=== PATIENT | female | born 1950 | race Caucasian/White ===

== ENCOUNTER 2020-01-14 04:59 | Inpatient (IN) ==
[2020-01-14] MEDS ORDERED: NITROGLYCERIN 0.4 MG TAB.SUBL SL ONE (05:10)
[2020-01-14] MEDS ORDERED: NITROGLYCERIN 1 GM OINT.TOP TD ONE (05:12)
[2020-01-14] MEDS ORDERED: NITROGLYCERIN/D5W 25 MG/250 ML BOTTLE IV SCH (05:30)
--- NOTE | 2020-01-14 05:45 | Emergency Department Note ---
SOB HPI - General Chief Complaint: Shortness of Breath/Dyspnea Stated Complaint: shortness of breath Time Seen by Provider: 01/14/20 05:25 Source: EMS Mode of arrival: EMS Limitations: no limitations - History of Present Illness Patient is brought in by ambulance with history of hypertension and severely short of breath. The. She's not able to speak in sentences or words, she is oriented to name and place. She is aware of her circumstances bed gasping for air. She is due for dialysis today. MD Complaint: shortness of breath - Related Data Home Medications Medication Instructions Recorded Confirmed krill oil 500 mg capsule 500 mg PO BID cap 04/30/18 01/13/20 vit C 250 mg-E 200 unit-zinc 40 1 tab PO BID 04/30/18 01/13/20 mg-copper 1 [id number] capsule Previous Rx's Medication Instructions Recorded aspirin 81 mg tablet,delayed 81 mg PO QDAY #30 tab 11/28/16 release cholecalciferol (vitamin D3) 25 1,000 unit PO .qod #30 cap 12/18/17 mcg (1,000 unit) capsule lidocaine 5 % topical patch 1 patch TOPICAL QDAY PRN #30 each 05/24/19 furosemide 20 mg tablet 20 mg PO BID #180 tab 05/27/19 sodium bicarbonate 650 mg tablet See Rx Instructions .ROUTE 06/30/19 .COMPLEX #120 tablet calcitriol 0.25 mcg capsule See Rx Instructions .ROUTE 09/09/19 .COMPLEX #20 capsule albuterol sulfate 90 mcg/actuation 2 inh INHALATION Q6H PRN #1 each 09/22/19 breath activated powder inhaler darbepoetin kevin in polysorbat 40 60 mcg IV .q month #1 ml 10/19/ mcg/mL in polysorbate injection sevelamer carbonate 800 mg tablet 1,600 mg PO .tidcc #180 tab 11/18/19 fluticasone propionate 50 2 spray INTRANASAL QDAY PRN #16 g 11/24/19 mcg/actuation nasal spray,suspension carvedilol 6.25 mg tablet 6.25 mg PO BID #180 tab 12/06/19 lidocaine-prilocaine 2.5 %-2.5 % 1 g TOPICAL ONCE #30 g 12/20/19 topical cream sertraline 100 mg tablet 50 mg PO BID 30 Days #30 tab 12/31/19 atorvastatin 10 mg tablet 10 mg PO QDAY #90 tab 01/03/20 cefazolin in sterile water 2 2 g IV .COMPLEX #20 ml 01/04/20 gram/20 mL in sterile water intravenous syringe Allergies Allergy/AdvReac Type Severity Reaction Status Date / Time latex AdvReac Mild Rash Verified 01/13/20 15:42 prednisone AdvReac Mild Anxiety Verified 01/13/20 15:42 Review of Systems Review of Systems: History valvular heart disease, history of lung cancer, COPD Limitations: ROS unobtainable due to patients medical condition Past Medical History - Past Medical History ON LICENSE OF [facility] Narrative: [facility] Medical History CKD stage G5/A3, GFR <15 and albumin creatinine ratio >300 mg/g (Chronic) Nephrotic range proteinuria with negative w/u in the past (ANCA, MIREILLE, Hep serologies, SPEP/UPEP) Hyperkalemia and CKD 5 limited use of RAASI therapy. Anemia due to stage 5 chronic kidney disease treated with darbepoetin (Chronic) ROBERT therapy initiated September 20, 2019, increased 10/18/19 to 60 ug/mo Nephrotic range proteinuria (Chronic) GFR is too low to use any RAASI therapy LVEF would probably not tolerate verapamil or diltiazem It is hard to argue with 3 years off dialysis and she is asymptomatic's just monitor Congestive heart failure due to valvular disease (Chronic) Heavily calcified mitral valve with stenotic physiology 2-3+ aortic insufficiency without stenosis, LVEF preserved on current medication proBNP level running 9,000-11,000 range Mitral valve stenosis and aortic valve insufficiency (Chronic) She denies rheumatic heart disease Will refer to cardiology Currently not on any anticoagulant and because of mitral valve disease if one was needed it probably have to be warfarin Pleural effusion (Chronic) Right small pleural effusion, remains unchanged, with benign behavior Adenocarcinoma of right lung (Chronic) Stage IB well differentiated adenocarcinoma of the right lung in complete remission after surgical resection Hyperparathyroidism due to renal insufficiency (Chronic) Renvella, calcitriol. Vit D3. Monitor calcium, phosphorus, and PTH levels Low back pain (Acute) Hypercalcemia (Chronic) persistent hypercalcemia despite removal of the tumor is a concern PTH is not elevated will obtain work up advised to stay well hydrated also has elevated phos, non compliant withbinders, advised to take them religiously given elevated Ca.phos product will follow Chronic kidney disease, stage V (Chronic) Has defied the odds having gone 3 years since the expected date of her original presentation with advanced renal failure still not on dialysis. Stable course which makes me believe this is chronic TIN or hypertensive nephrosclerosis more than diabetic renal disease History of tobacco use (Acute) Pneumothorax (Acute 01/02/15) Hydropneumothorax Menopausal and postmenopausal disorder (Acute) Hypertension, essential, benign (Chronic) This is occurring in the setting of mitral stenosis and aortic insufficiency Hyperlipidemia (Acute) Gastroesophageal reflux (Acute) Chronic obstructive pulmonary disease (Acute) Hypertensive renal disease (Chronic) BP at goal ct current medications will hold off on ACEI/ARB given worsening s.Creat and mild hyperkalemia keep a BP log will follow and optimize meds Microscopic hematuria (Chronic) recheck UA Proteinuria (Chronic) Hyponatremia (Chronic) Na stable at 135 will monitor Anemia (Chronic) Secondary hyperparathyroidism of renal origin (Chronic) PTH 77, cCa 10.6 much improved, hyperphosphatemia worse again Her PTHrp is elevated at 31, normal range is upto 27 educated about low phos diet ct renvela, need to have better compliance stay well hydrated Metabolic acidosis (Chronic) Chronic kidney disease, stage IV (severe) (Chronic) Diabetes mellitus, type II (Ruled-out) Diabetes mellitus (Inactive) Surgical History History of tympanoplasty (Acute) L perforation History of lobectomy of lung (Acute 12/23/14) Dr Montes De Oca-right*Mediastinoscopy followed by RUL History of hysterectomy (Acute) VISH/BSO History of colonoscopy (Acute 01/26/15) Dr Brahser- TA/HP Source: old records reviewed Medical history: Reports: cancer, CHF, COPD, renal disease, valvular heart disease Surgical history ED: Reports: cancer surgery Family history: Reports: connective tissue disorde, hypertension - Social History smoking status: Former smoker Alcohol use: Reports: Rarely Drug use: Reports: none Physical Exam Limitations: no limitations General appearance: alert, in distress, nontoxic Head: atraumatic, normocephalic Eye: Present: normal appearance, PERRL, EOMI, visual temple intact. Absent: scl eral icterus, conjunctival injection ENT: Present: normal exam, normal oropharynx, mucous membranes moist, normal external ear exam Neck: Present: normal inspection, full ROM, trachea midline. Absent: tenderness Chest: Present: normal inspection, symmetric chest wall rise. Absent: tenderness, rash Respiratory: Present: respiratory distress, accessory muscle use, decreased breath sounds. Absent: rales/crackles, wheezes Cardiovascular: Present: regular rate, normal rhythm, systolic murmur. Absent: rubs Abdominal: Present: soft. Absent: distention, tenderness Extremities: Present: normal inspection, normal capillary refill. Absent: pedal edema, cyanosis, clubbing Back: Absent: CVA tenderness (R), CVA tenderness (L) Neurological: Present: alert. Absent: motor sensory deficit Psychiatric: Present: normal affect Skin: Present: warm, diaphoretic, cyanosis, pallor, mottled Course - Reevaluation(s) Reevaluation #1: Patient immediately started on sublingual nitroglycerin, she was given 1 tablet sublingual at the same time, we applied 1 inch of Nitropaste. We kept her on a nonrebreather mask and despite oxygen therapy. Her pH was 7.17 with a PCO2 of 90. Thus, she was retaining CO2 and we called respiratory distress started BiPAP. We also started her on a Tridil drip and she was titrated up from 5 mics to 10 mics and with that her blood pressure is coming down and the last reading was 150 [address] with [address] Allred, the fiberglass model maker on-call, given that her chest x-ray showing flash pulmonary edema with a small effusion on the right side, given that she has both mitral stenosis and aortic's insufficiency, this makes the most sense of. I believe she developed flash pulmonary edema from uncontrolled hypertension. Treatment for her volume overload and pulmonary edema would be urgent dialysis, which will be initiated by the nephrology staff. Also spoke with Dr. Nieto for ICU admission. Labs are still pending at this t agnes with exception of a blood gas, given that she has CO2 retention. We also started her on Solu-Medrol as well as DuoNeb treatment. She is currently on BiPAP and this should also help with the volume overload. Lasix therapy initiated, Kelsey catheter placed in the emergency department. Reevaluation #2: Patient recheck at 6:25 AM, she's breathing much easier, on auscultation most of the wheezing is gone. Blood pressure is 120 systolic over 80s. We will titrate down the Tridil drip. Plan on transfer to the ICU. Vital Signs Temperature 97.1 F 01/14/20 05:00 Pulse Rate 104 H 01/14/20 05:00 Respiratory Rate 20 01/14/20 05:00 Blood Pressure 246/94 01/14/20 05:00 Pulse Oximetry (%) 99 01/14/20 05:00 Temperature 97.1 F 01/14/20 05:00 Pulse Rate 106 H 01/14/20 06:01 Respiratory Rate 24 H 01/14/20 06:01 Blood Pressure 146/98 01/14/20 06:01 Pulse Oximetry (%) 100 01/14/20 06:01 Shortness of Breath/Dyspnea - [facility] Narrative Medical decision making narrative: Final impression is flash pulmonary edema from uncontrolled hypertension - Lab Data Result diagrams: 01/14/20 05:40 01/14/20 05:40 Lab Results 01/14/20 01/14/20 Range/Units 05:40 05:40 WBC 24.2 H (4.50-11.00) K/mcL RBC 2.87 L (3.59-5.38) M/mcL Hgb 8.4 L (11.2-15.7) g/dL Hct 28.1 L (34.1-44.9) % MCV 97.9 (80.0-100.0) fL MCH 29.3 (26.0-34.0) pg MCHC 29.9 L (31.0-36.0) g/dL RDW 21.2 H (11.5-14.5) % Plt Count 498 H (140-440) K/mcL MPV 9.9 (7.4-10.4) fL Gran % 72.3 (38.0-78.0) % Lymph % (Auto) 20.1 (15.5-49.0) % Amador % (Auto) 5.9 (1.0-12.0) % Eos % (Auto) 1.2 (0.0-7.0) % Baso % (Auto) 0.5 (0.0-2.0) % Gran # 17.49 H (1.80-8.00) K/mcL Lymph # (Auto) 4.85 H (1.50-4.80) K/mcL Amador # (Auto) 1.43 H (0.10-0.90) K/mcL Eos # (Auto) 0.30 (0.00-0.70) K/mcL Baso # (Auto) 0.11 (0.00-0.30) K/mcL VBG Lactic Acid 1.6 (0.5-2.0) mmol/L Critical Care Time Critical Care Time: Yes Total Critical Care Time: 25 Attestation: I attest to the fact that the patient receive one-on-one care with nursing staff as well as myself for at least 25 minutes. Disposition Pt seen by TIER LIFT TRUCK OPERATOR/PA only: No Clinical Impression: Renal hypertension, Pulmonary edema, Acute exacerbation of chronic obstructive airways disease, Congestive heart failure due to valvular disease, Mitral valve stenosis and aortic valve insufficiency, Pleural effusion, Hypertensive renal disease CHF (congestive heart failure) Qualifiers: Heart failure type: unspecified Heart failure chronicity: chronic Qualified Code(s): I50.9 - Heart failure, unspecified Disposition: Xfer As Inpt ([facility]) Condition: Critical Referrals: Leonardo Woodard MD [Primary Care Provider] -
[2020-01-14] MEDS ORDERED: IPRATROPIUM/ALBUTEROL 3 ML AMPUL.NEB NEB ONE (05:53)
[2020-01-14] MEDS ORDERED: methylPREDNISolone SOD SUCC 125 MG/2 ML VIAL IV ONE (05:53)
[2020-01-14] MEDS ORDERED: IPRATROPIUM/ALBUTEROL 3 ML AMPUL.NEB NEB PRN ×2 (05:55→08:01)
[2020-01-14] MEDS ORDERED: FUROSEMIDE 40 MG/4 ML VIAL IV ONE (06:03)
--- NOTE | 2020-01-14 06:18 | Internal Med History&Physical ---
Medical - H&P: HPI Patient information: Note initiated : 01/14/20 at 6:18 am Service Date, if different from initiated Date: [] Patient: Miracle Velez a 69 y/o F admitted on for shortness of breath. Chief Complaint: [] Chief complaint: Shortness of breath History of present illness: Ms. Velez is a 69 year old F WITH A HISTORY OF MS, AI, ESRD on HD/RUL lung resection, advanced COPD who presents to the ER with rapidly progressive dyspnea over the last 24 hours. Symptoms are present with minimal exertion and even at rest. Denies relief relief using her bronchodilators. Denies associated productive sputum/fever shaking chills or rash or changes in medications. Initial work-up was consistent with hypercapnic respiratory failure with blood pressure 250's, imaging consistent with flash pulmonary edema, blood gas CO2 90 and pH 7.17. White count 25,000. Patient was promptly started on noninvasive mechanical ventilation along with diuretics. Nephrology was consulted for andrea rgent hemodialysis. Elevated troponin consistent with endorgan dysfunction. Hospital service was consulted after nephrology consultation was sought for emergent hemodialysis At the time of evaluation patient is currently on mechanical ablation. She is unable to talk in full sentences. She appears distressed. She was able to endorse history as above and denies sick contacts. Her symptoms are progressed today and a half from dyspnea on maximal exertion to dyspnea at rest. She denies associated fever, productive sputum, smoking. She quit smoking 2 years ago. Review of systems A 10 point review system was performed and is negative except for ones cussed above Medical - H&P: PMH Medical history: CKD stage G5/A3, GFR <15 and albumin creatinine ratio >300 mg/g (Chronic) Nephrotic range proteinuria with negative w/u in the past (ANCA, MIREILLE, Hep serologies, SPEP/UPEP) Hyperkalemia and CKD 5 limited use of RAASI therapy. Anemia due to stage 5 chronic kidney disease treated with darbepoetin (Chronic) ROBERT therapy initiated September 20, 2019, increased 10/18/19 to 60 ug/mo Nephrotic range proteinuria (Chronic) GFR is too low to use any RAASI therapy LVEF would probably not tolerate verapamil or diltiazem It is hard to argue with 3 years off dialysis and she is asymptomatic's just monitor Congestive heart failure due to valvular disease (Chronic) Heavily calcified mitral valve with stenotic physiology 2-3+ aortic insufficiency without stenosis, LVEF preserved on current medication proBNP level running 9,000-11,000 range Mitral valve stenosis and aortic valve insufficiency (Chronic) She denies rheumatic heart disease Will refer to cardiology Currently not on any anticoagulant and because of mitral valve disease if one was needed it probably have to be warfarin Pleural effusion (Chronic) Right small pleural effusion, remains unchanged, with benign behavior Adenocarcinoma of right lung (Chronic) Stage IB well differentiated adenocarcinoma of the right lung in complete remission after surgical resection Hyperparathyroidism due to renal insufficiency (Chronic) Renvella, calcitriol. Vit D3. Monitor calcium, phosphorus, and PTH levels Low back pain (Acute) Hypercalcemia (Chronic) persistent hypercalcemia despite removal of the tumor is a concern PTH is not elevated will obtain work up advised to stay well hydrated also has elevated phos, non compliant withbinders, advised to take them religiously given elevated Ca.phos product will follow Chronic kidney disease, stage V (Chronic) Has defied the odds having gone 3 years since the expected date of her original presentation with advanced renal failure still not on dialysis. Stable course which makes me believe this is chronic TIN or hypertensive nephrosclerosis more than diabetic renal disease History of tobacco use (Acute) Pneumothorax (Acute 01/02/15) Hydropneumothorax Menopausal and postmenopausal disorder (Acute) Hypertension, essential, benign (Chronic) This is occurring in the setting of mitral stenosis and aortic insufficiency Hyperlipidemia (Acute) Gastroesophageal reflux (Acute) Chronic obstructive pulmonary disease (Acute) Hypertensive renal disease (Chronic) BP at goal ct current medications will hold off on ACEI/ARB given worsening s.Creat and mild hyperkalemia keep a BP log will follow and optimize meds Microscopic hematuria (Chronic) recheck UA Proteinuria (Chronic) Hyponatremia (Chronic) Na stable at 135 will monitor Anemia (Chronic) Secondary hyperparathyroidism of renal origin (Chronic) PTH 77, cCa 10.6 much improved, hyperphosphatemia worse again Her PTHrp is elevated at 31, normal range is upto 27 educated about low phos diet ct renvela, need to have better compliance stay well hydrated Metabolic acidosis (Chronic) Chronic kidney disease, stage IV (severe) (Chronic) Diabetes mellitus, type II (Ruled-out) Diabetes mellitus (Inactive) Surgical History History of tympanoplasty (Acute) L perforation History of lobectomy of lung (Acute 12/23/14) Dr Montes De Oca-right*Mediastinoscopy followed by RUL History of hysterectomy (Acute) VISH/BSO History of colonoscopy (Acute 01/26/15) Dr Brasher- TA/HP Family History Father , 83 from [place] exposure Malignant neoplasm of colon Unknown Coronary artery disease Glaucoma Mother Essential hypertension Social History adopted: No caregiver/support person: No foster care: No household members: alone housing: house lives independently: Yes marital status: education level: vocational service: No intermediate: No occupational status: retired pets and animals: Yes pets and animals: dog(s) hx recent travel: No sexually active: No smoking status: Unknown if ever smoked alcohol intake frequency: holiday/special occasion only substance use type: marijuana Reproductive History Menstrual Age of Menarche: 13 control method: none Menopause type: surgical Total pregnancies: 0 Medical - H&P: Meds Home Medications Medication Instructions Recorded Confirmed Type aspirin 81 mg tablet,delayed 81 mg PO QDAY #30 tab 11/28/16 01/13/20 Rx release cholecalciferol (vitamin D3) 25 1,000 unit PO .qod #30 cap 12/18/17 01/13/20 Rx mcg (1,000 unit) capsule krill oil 500 mg capsule 500 mg PO BID cap 04/30/18 01/13/20 History vit C 250 mg-E 200 unit-zinc 40 1 tab PO BID 04/30/18 01/13/20 History mg-copper 1 [id number] capsule lidocaine 5 % topical patch 1 patch TOPICAL QDAY PRN #30 each 05/24/19 01/13/20 Rx furosemide 20 mg tablet 20 mg PO BID #180 tab 05/27/19 01/13/20 Rx sodium bicarbonate 650 mg tablet See Rx Instructions .ROUTE 06/30/19 01/13/20 Rx .COMPLEX #120 tablet calcitriol 0.25 mcg capsule See Rx Instructions .ROUTE 09/09/19 01/13/20 Rx .COMPLEX #20 capsule albuterol sulfate 90 mcg/actuation 2 inh INHALATION Q6H PRN #1 each 09/22/19 01/13/20 Rx breath activated powder inhaler darbepoetin kevin in polysorbat 40 60 mcg IV .q month #1 ml 10/19/19 01/13/20 Rx mcg/mL in polysorbate injection sevelamer carbonate 800 mg tablet 1,600 mg PO .tidcc #180 tab 11/18/19 01/13/20 Rx fluticasone propionate 50 2 spray INTRANASAL QDAY PRN #16 g 11/24/19 01/13/20 Rx mcg/actuation nasal spray,suspension carvedilol 6.25 mg tablet 6.25 mg PO BID #180 tab 12/06/19 01/13/20 Rx lidocaine-prilocaine 2.5 %-2.5 % 1 g TOPICAL ONCE #30 g 12/20/19 01/13/20 Rx topical cream sertraline 100 mg tablet 50 mg PO BID 30 Days #30 tab 12/31/19 01/13/20 Rx atorvastatin 10 mg tablet 10 mg PO QDAY #90 tab 01/03/20 01/13/20 Rx cefazolin in sterile water 2 2 g IV .COMPLEX #20 ml 01/04/20 01/13/20 Rx gram/20 mL in sterile water intravenous syringe Allergies Allergy/AdvReac Type Severity Reaction Status Date / Time latex AdvReac Mild Rash Verified 01/13/20 15:42 prednisone AdvReac Mild Anxiety Verified 01/13/20 15:42 Medical - H&P: Exam - Constitutional Vitals: Temp Pulse Resp BP Pulse Ox 97.1 F 106 H 24 H 146/98 100 01/14/20 05:00 01/14/20 06:01 01/14/20 06:01 01/14/20 06:01 01/14/20 06:01 General appearance: moderate distress Exam: Distress labored breathing, expiratory rhonchi On noninvasive mechanical ventilation Head normocephalic Oral cavity moist eye movement symmetrical Neck no lymphadenopathy S1-S2 regular rhythm, diastolic murmur Expiratory rhonchi Abdomen soft and nontender Lower extremity no cyanosis clubbing Skin no suspicious lesion Psych anxious neuro normal higher function Medical - H&P: Reslt - Labs CBC & Chem 7: 01/14/20 05:40 01/14/20 05:40 Medical - H&P: A/P (1) Hypertensive crisis Current visit: Yes Status: Deleted * Hypertensive crisis with endorgan dysfunction including flash pulmonary edema/congestive heart failure. Start nicardipine drip. Likely secondary to volume overload. Emergent hemodialysis * Hypoxic hypercapnic respiratory failure with respiratory acidosis pH 7.17. He had noninvasive ventilation * Severe sepsis with white count 24,000. Broad antibiotic coverage. * Flash pulmonary edema-noninvasive ventilation/supplemental oxygen/emergent h emodialysis * Elevated troponin secondary to hypertensive crisis and endorgan dysfunction. Repeat serial troponin. * Acute exacerbation of COPD initiate bronchodilators/steroids * CAD continue isosorbide/hydralazine/Coreg/aspirin/statin * Anemia secondary to renal disease stable * Anxiety disorder continue sertraline * Prophylaxis heparin Plan * ICU admit in light of high risk mortality/[place] 2 score 20 * Emergent hemodialysis * Nicardipine drip * Broad antibiotic coverage following blood cultures. * Serial troponin * Noninvasive mechanical ventilation * Serial chest imaging/blood gas * Bronchodilators steroids Critical time spent in excess of 35 minutes on management of hypercapnic respiratory failure/pulmonary edema/ICU care coordination. This is in addition to time spent on history and physical
[2020-01-14 06:21] LABS: Basophils # (Auto) 0.11 K/mcL (0.00-0.30); Basophils % (Auto) 0.5 % (0.0-2.0); Eosinophils % (Auto) 1.2 % (0.0-7.0); Granulocytes % (Auto) 72.3 % (38.0-78.0); Hematocrit 28.1 % (34.1-44.9); Hemoglobin 8.4 g/dL (11.2-15.7); Lymphocytes # (Auto) 4.85 K/mcL (1.50-4.80); Lymphocytes % (Auto) 20.1 % (15.5-49.0); Mean Cell Volume 97.9 fL (80.0-100.0); Mean Corpuscular HGB Conc 29.9 g/dL (31.0-36.0); Mean Platelet Volume 9.9 fL (7.4-10.4); Monocytes # (Auto) 1.43 K/mcL (0.10-0.90); Monocytes % (Auto) 5.9 % (1.0-12.0); Platelet Count 498 K/mcL (140-440); RBC 2.87 M/mcL (3.59-5.38); Red Cell Distribution Width 21.2 % (11.5-14.5); WBC 24.2 K/mcL (4.50-11.00)
[2020-01-14 07:10] LABS: ALT/SGPT < 5 U/l (0-40); AST/SGOT 17 U/l (0-37); Albumin 3.5 gm/dL (3.2-5.2); Alkaline Phosphatase 149 U/L (39-117); Bilirubin,Total 0.3 mg/dL (0.0-1.0); Blood Urea Nitrogen 27 mg/dl (8-23); C-Reactive Protein 5.7 mg/dl (0.0-0.8); Calcium 10.2 mg/dl (8.6-10.4); Carbon Dioxide 23 mmol/L (22-30); Chloride 92 mmol/L (96-108); Globulin 3.6 gm/dL (2.2-3.7); Glomerular Filtration Rate 10; Glucose 230 mg/dL (70-105)
--- NOTE | 2020-01-14 07:47 | Nephrology Consult Note ---
History of Present Illness - Reason for Consult Patient information: Note initiated : 01/14/20 at 7:44 am Service Date, if different from initiated Date: [] Patient: Miracle Velez 69 y/o F admitted on 01/14/20 for Shortness of breath. Chief Complaint: [] end stage renal disease - Chief Complaint SOB - History of Present Illness 69-year-old woman with ESRD on HD MWF via AV fistula presented to the ED with shortness of breath. She was found to have hypertensive crisis, blood pressure initially 250 systolic, with flash pulmonary edema. She was started on n itroglycerin drip, given 120 mg IV Lasix and arrangements were made for emergent dialysis Hypertension, MS, AI, hypertensive renal disease, hyperparathyroidism secondary to renal insufficiency, T2 DM, CHF, ESRD on HD, COPD, anemia in CKD, adenocarcinoma of the lung status post lobectomy Surgical history she had a hysterectomy, tympanoplasty, lobectomy of the lung. Family history Social history Review of systems all the above limited/unable to obtain secondary to the acuity of care. The patient required BiPAP support. Physical exam Vital signs reviewed HEENT head is normocephalic, atraumatic. Nonicteric sclera. BiPAP mask General frail elderly lady in mild distress Pulmonary respirations assisted with BiPAP, coarse breath sounds secondary to BiPAP Cardiovascular tachycardia, heart sounds covered by BiPAP Extremities no cyanosis, no edema Abdomen soft, nontender Skin warm and dry, no rash on exposed area Neurologic opens eyes to voice, follows commands Medications and Allergies Home Medications Medication Instructions Recorded Confirmed Type aspirin 81 mg tablet,delayed 81 mg PO QDAY #30 tab 11/28/16 01/14/20 Rx release cholecalciferol (vitamin D3) 25 1,000 unit PO .qod #30 cap 12/18/17 01/14/20 Rx mcg (1,000 unit) capsule krill oil 500 mg capsule 500 mg PO QAM cap 04/30/18 01/14/20 History vit C 250 mg-E 200 unit-zinc 40 1 tab PO BID 04/30/18 01/14/20 History mg-copper 1 rr-sxqbso-lqhmyv capsule lidocaine 5 % topical patch 1 patch TOPICAL QDAY PRN #30 each 05/24/19 01/14/20 Rx sevelamer carbonate 800 mg tablet 1,600 mg PO .tidcc #180 tab 11/18/19 01/14/20 Rx carvedilol 6.25 mg tablet 6.25 mg PO BID #180 tab 12/06/19 01/14/20 Rx sertraline 100 mg tablet 50 mg PO BID 30 Days #30 tab 12/31/19 01/14/20 Rx atorvastatin 10 mg tablet 10 mg PO QDAY #90 tab 01/03/20 01/14/20 Rx cefazolin in sterile water 2 2 g IV .COMPLEX #20 ml 01/04/20 01/14/20 Rx gram/20 mL in sterile water intravenous syringe Albuterol Sulfate [Proair 1 inh INHALATION Q6H PRN 01/14/20 01/14/20 History Respiclick] Calcitriol [Rocaltrol] 0.5 mcg PO Q2D 01/14/20 01/14/20 History Darbepoetin Adam in Polysorbat 125 mcg IV WEEKLY 01/14/20 01/14/20 History [Aranesp (in polysorbate)] Fluticasone Propionate [Flonase] 1 spray INTRANASAL QDAY PRN 01/14/20 01/14/20 History Sodium Bicarbonate 650 mg PO BID 01/14/20 01/14/20 History Allergies Allergy/AdvReac Type Severity Reaction Status Date / Time latex AdvReac Mild Rash Verified 01/13/20 15:42 prednisone AdvReac Mild Anxiety Verified 01/13/20 15:42 Exam - Vital Signs Vital signs: Temp Pulse Resp BP Pulse Ox 36.1 C 76 20 126/53 91 01/14/20 07:38 01/14/20 07:35 01/14/20 07:38 01/14/20 07:38 01/14/20 07:38 Results - Lab Results 01/14/20 05:40 01/14/20 05:40 Most recent lab results Calcium 10.2 mg/dl (8.6-10.4) 01/14/20 05:40 Assessment and Plan (1) End-stage renal disease on hemodialysis Status: Acute (2) Flash pulmonary edema Status: Acute Priority: High (3) Hypertensive crisis Status: Acute Priority: High (4) MSSA bacteremia Status: Acute Priority: Medium - Narrative A/P Narrative: ESRD presumed secondary to hypertensive nephrosclerosis on HD MWF Last HD 01/12/2020 EDW 49.5 kg Emergent HD this morning, arrangements have been made. Isolated ultrafiltration 01/15/2020, 13 mils per KG per hour as tolerated, total 3 hours. Hemodynamics and volume Serum albumin 3.5. NT proBNP 21,000. 12/24/2019 echocardiogram LVEF 60 to 65%. Grade 2 diastolic dysfunction with increased LA pressure. LA moderately dilated. Mitral valve cannot exclude presence of a vegetation. Severe MS. Mild TR. Mild to moderate AI. I personally reviewed the chest x-ray, consistent with pulmonary edema. Hypertensive emergency Managed as detailed in HPI Acid-base Bicarbonate 23. ABG discussed over the phone with the ED provider showed a PCO2 of 90. pH 7.17, PCO2 90, PO2 263. Bone mineral Calcium within lab reference range. Will check phosphorus in a.m. BUN K 27/4.9 Hematologic Anemia, hemoglobin 8.4. Leukocytosis, blood cultures ordered. 12/22/2019 bacteremia with MSSA. 12/24/2019 blood cultures negative Continue Ancef, next dose today after dialysis 2 g.
[2020-01-14] MEDS ORDERED: ONDANSETRON 4 MG/2 ML VIAL IV PRN (08:01)
[2020-01-14] MEDS ORDERED: ACETAMINOPHEN 325 MG TABLET PO PRN (08:01)
[2020-01-14] MEDS ORDERED: niCARdipine 25 MG in 0.9 % SODIUM CHLORIDE 240 ML IV PRN (08:01)
[2020-01-14] MEDS ORDERED: POLYETHYLENE GLYCOL 3350 17 GM PACKET PO PRN (08:01)
[2020-01-14] MEDS ORDERED: MELATONIN 3 MG TABLET PO PRN (08:01)
[2020-01-14] MEDS ORDERED: ACETAMINOPHEN 650 MG/65 ML BOTTLE IV PRN (08:01)
[2020-01-14] MEDS ORDERED: ONDANSETRON 4 MG ODT TABLET SL PRN (08:01)
[2020-01-14] MEDS ORDERED: BISACODYL 10 MG SUPP.RECT PR PRN (08:01)
[2020-01-14] MEDS ORDERED: VANCOMYCIN PER PHARMACY IV SCH (08:01)
--- NOTE | 2020-01-14 08:15 | XRay Report ---
CLINICAL INFORMATION: SOB COMPARISON: 12/22/2019 FINDINGS: Heart is moderately enlarged - increase. Mediastinum unremarkable. Pulmonary vessels are moderately congested and there is marked interstitial edema throughout both lungs - more prominent on the left side. Right thoracotomy changes again noted Small right pleural effusion appreciated IMPRESSION: Severe CHF Interpreted and Authenticated by: Bala Rose 01/14/20
[2020-01-14] MEDS ORDERED: NITROGLYCERIN 6.5 MG PO SCH (09:00)
[2020-01-14] MEDS: BUDESONIDE 0.5 MG/2 ML AMPUL.NEB NEB SCH ×2 (09:10→18:15)
[2020-01-14] MEDS: MULTIVIT,THER IRON,CA,FA & MIN 1 TABLET PO SCH (11:08)
[2020-01-14] MEDS: methylPREDNISolone SOD SUCC 125 MG/2 ML VIAL IV SCH ×2 (11:08→22:11)
[2020-01-14] MEDS: HEPARIN 5,000 UNIT/ML VIAL SQ SCH ×2 (11:08→22:11)
[2020-01-14] MEDS: DOCUSATE SODIUM 100 MG CAPSULE PO SCH ×2 (11:08→22:11)
[2020-01-14 11:47] LABS: Appearance,Urine CLEAR; Bacteria,Urine 0 /hpf (0); Bilirubin,Urine NEG (NEG); Color,Urine YELLOW; Culture Indicated,Urine NO; Glucose,Urine (UA) 150 mg/dL (NEG); Ketones,Urine NEG (NEG); Leukocyte Esterase,Urine NEG /uL (NEG); Mucus,Urine FEW /hpf (0); Nitrate,Urine NEG (NEG); Protein,Urine 100 mg/dL (NEG); Urine Blood NEG mg/dL (<0.03); Urine RBC 1 /hpf (0-1); Urine Squamous Epithelial Cell 0 /hpf (0-4); Urine WBC < 1 /hpf (0-4); Urobilinogen,Urine NEG (NEG)
[2020-01-14] MEDS ORDERED: PIPERACILLIN SODIUM/TAZOBACTAM 2.25 GM in DEXTROSE 5% IN WATER 50 ML IV SCH (13:00)
[2020-01-14] MEDS ORDERED: ceFAZolin 2 GM in DEXTROSE 5% IN WATER 50 ML IV SCH (13:30)
[2020-01-14] MEDS ORDERED: DEXTROSE 50% 50 ML VIAL IV PRN (13:40)
[2020-01-14] MEDS ORDERED: DEXTROSE 31 GM ORAL.SUSP PO PRN (13:40)
--- NOTE | 2020-01-14 13:41 | Internal Med Progress Note ---
Medical - PN: Subj Patient information: Note initiated : 01/14/20 at 1:20 pm Service Date, if different from initiated Date: [] Patient: Miracle Velez a 69 y/o F admitted on 01/14/20 for Shortness of breath. Chief Complaint: [] Interval history: Ms. Velez is a 69 year old F WITH A HISTORY OF MS, AI, ESRD on HD/RUL lung resection, advanced COPD who presents to the ER with rapidly progressive dyspnea over the last 24 hours. Symptoms are present with minimal exertion and even at rest. Denies relief relief using her bronchodilators. Denies associated productive sputum/fever shaking chills or rash or changes in medications. Initial work-up was consistent with hypercapnic respiratory failure with blood pressure 250's, imaging consistent with flash pulmonary edema, blood gas CO2 90 and pH 7.17. White count 25,000. Patient was promptly started on noninvasive mechanical ventilation along with diuretics. Nephrology was consulted for emergent hemodialysis. Elevated troponin consistent with endorgan dysfunction. Hospital service was consulted after nephrology consultation was sought for emergent hemodialysis At the time of evaluation patient is currently on mechanical ablation. She is unable to talk in full sentences. She appears distressed. She was able to endorse history as above and denies sick contacts. Her symptoms are progressed today and a half from dyspnea on maximal exertion to dyspnea at rest. She denies associated fever, productive sputum, smoking. She quit smoking 2 years ago. 01/14 - Constitutional Vitals: Vital Signs Temp Pulse Resp BP Pulse Ox 98.1 F 76 14 126/55 100 01/14/20 13:16 01/14/20 13:03 01/14/20 13:16 01/14/20 13:16 01/14/20 13:16 Period Temp Pulse Resp BP Sys/Rodriguez Pulse Ox Last 24 Hr 96.3 F-98.3 F 70-114 13-30 61-253/38-118 89-100 Intake and Output 01/13/20 01/14/20 01/14/20 21:59 05:59 13:59 Intake Total 1 12 Output Total 2500 Balance 1 -2488 Weight 52.163 kg Intake & Output: Intake & Output 01/13/20 01/14/20 01/14/20 21:59 05:59 13:59 Intake Total 1 12 Output Total 2500 Balance 1 -2488 Weight 52.163 kg Intake: IV 1 12 NITROGLYCERIN/D5W 25 mg In 250 1 12 ml @ 5 MCG/MIN 3 mls/hr IV . Q24H [facility] Rx#:[id number] Output: Hemodialysis UF 2500 Other: Urine Appearance Uretheral (Kelsey) Clear Urine Color Uretheral (Kelsey) Pale Urine Odor Uretheral (Kelsey) Normal Exam: General: Alert, Awake, No acute Distress Eyes/N/T: EOMI, Head/Neck: neck supple, CV: RRR, murmur Pulm: no wheezing Abd: soft, nontender, +BS x4 Ext: no clubbing/cyanosis/ edema Neuro: Alert, no focal deficits, moves all extremities, Skin: warm/dry Medical - PN: Obj Da - Labs CBC & Chem 7: 01/14/20 05:40 01/14/20 05:40 Labs: Abnormal Lab Results 01/14/20 01/14/20 01/14/20 12:12 06:50 05:40 WBC RBC Hgb Hct MCHC RDW Plt Count Gran # Lymph # (Auto) [place] # (Auto) Chloride Anion Gap BUN Creatinine Glucose Alkaline Phosphatase Troponin T 0.38 H* 0.16 H* C-Reactive Protein NT-Pro-B Natriuret Pep Urine Protein 100 A Urine Glucose (UA) 150 A 01/14/20 01/14/20 05:40 05:40 WBC 24.2 H RBC 2.87 L Hgb 8.4 L Hct 28.1 L MCHC 29.9 L RDW 21.2 H Plt Count 498 H Gran # 17.49 H Lymph # (Auto) 4.85 H [place] # (Auto) 1.43 H Chloride 92 L Anion Gap 18.0 H BUN 27 H Creatinine 4.3 H Glucose 230 H Alkaline Phosphatase 149 H Troponin T C-Reactive Protein 5.7 H NT-Pro-B Natriuret Pep 93011.0 H Urine Protein Urine Glucose (UA) Meds: Medications Acetaminophen (Tylenol) 650 mg PO Q4-6HP PRN; Protocol PRN Reason: Per Pain Protocol/Fever > 101 Albuterol/Ipratropium (Duoneb) 3 ml NEB Q4HP PRN PRN Reason: Shortness Of Breath Bisacodyl (Dulcolax) 10 mg [place] Q2-3DAYS PRN PRN Reason: Constipation Budesonide (Pulmicort) 0.5 mg NEB Q12 [facility] Last Admin: 01/14/20 09:10 Dose: 0.5 mg Documented by: Docusate Sodium (Colace) 100 mg PO BID [facility] Last Admin: 01/14/20 11:08 Dose: 100 mg Documented by: Heparin Sodium (Porcine) (Heparin) 5,000 unit SQ Q12 [facility] Last Admin: 01/14/20 11:08 Dose: 5,000 unit Documented by: Acetaminophen (Ofirmev) 650 mg in 65 mls @ 130 mls/hr IV Q6HP PRN; Protocol PRN Reason: Per Pain Protocol/Fever > 101 Nicardipine HCl 25 mg/ Sodium (Chloride) 250 mls @ 50 mls/hr IV Q5HP PRN; Protocol PRN Reason: Hypertension Piperacillin Sod/Tazobactam (Sod 2.25 gm/ Dextrose) 50 mls @ 100 mls/hr IV Q8H [facility]; Protocol Vancomycin HCl 1,000 mg/ (Sodium Chloride) 250 mls @ 250 mls/hr IV ONCE ONE Stop: 01/14/20 14:59 Iron Carb/Multivit/Chef Teacher/Folic Acid (Multivitamin W/Minerals) 1 tab PO DAILY [facility] Last Admin: 01/14/20 11:08 Dose: 1 tab Documented by: Melatonin (Melatonin 3mg Tablet) 3 mg PO HSP PRN PRN Reason: Insomnia Methylprednisolone Sodium Succinate (Solu-Medrol) 60 mg IV Q12 [facility] Last Admin: 01/14/20 11:08 Dose: 60 mg Documented by: Ondansetron HCl (Zofran Odt) 4 mg SL Q4-6HP PRN; Protocol PRN Reason: Nausea And Vomiting Ondansetron HCl (Zofran) 4 mg IV Q4-6HP PRN; Protocol PRN Reason: Nausea And Vomiting Polyethylene Glycol (Miralax) 17 gm PO DAILYP PRN PRN Reason: Constipation Senna/Docusate Sodium (Senna Plus Tablet) 1 tab PO HS [facility] Sodium Chloride (Saline Flush) 10 ml IV Q8 [facility] Vancomycin HCl (Vancomycin Per Pharmacy) 1 order IV UD [facility]; Protocol Medical - PN: A/P - Time Spent With Patient Total time spent is greater than 50% in coordination of care (as documented) at patient's floor/unit and/or counseling patient: - Narrative A/P Narrative: A: *Hypertensive crisis/Emergency with endorgan dysfunction including flash pulm edema/CHF: -on nicardipine drip -emergent dialysis *Hypoxic hypercapnic respiratory failure w/respiratory acidosis: -on Biapa *Leukocytosis: ?infectious vs Reactive *Recent h/o of MSSA Bactermia/Endocarditis: being treated outpt *Elevated troponin: 2/2 hypertensive crisis and endorgan dysfunction -Trops 0.16>0.38> *CAD continue isosorbide/hydralazine/Coreg/aspirin/statin *AECOPD: initiate bronchodilators/steroids *ESRD: *Anemia, chronic: *Anxiety disorder: continue sertraline *h/o of Lung CA: follows with Dr. Smart Plan: -ICU admit in light of high risk mortality/[place] 2 score 20 -Emergent hemodialysis -Nicardipine drip -Nephrology following -Broad (vanc/zosyn) antibiotic, BC pending -Serial troponin -Noninvasive mechanical ventilation wean, f/u ABG -Serial chest imaging/blood gas -Bronchodilators steroids -echo pending -ppx: heparin full code
[2020-01-14] MEDS ORDERED: VANCOMYCIN 1,000 MG in 0.9 % SODIUM CHLORIDE 250 ML IV ONE (14:00)
[2020-01-14] MEDS: 0.9 % SODIUM CHLORIDE 10 ML SYRINGE IV SCH ×2 (14:00→22:12)
[2020-01-14] MEDS ORDERED: ceFAZolin 1 GM VIAL IV ONE (14:15)
[2020-01-14 14:46] LABS: Anisocytosis 2+ (NONE SEEN); Eosinophils % (Manual) 1 % (0-7); Lymphocytes % 18 % (15-49); Monocytes % (Manual) 4 % (1-12); Platelet Estimate INCREASED (NORMAL); Polychromasia FEW (NONE SEEN); RBC Morphology ABNORM (NORMAL); Segmented Neutrophils % 77 % (38-78)
[2020-01-14 15:53] LABS: Hemoglobin A1C 4.6 % HGB (4.0-6.0)
[2020-01-14] MEDS: INSULIN LISPRO 1 UNIT/0.01 ML UNIT SQ SCH ×2 (16:48→22:11)
[2020-01-14] MEDS ORDERED: SENNOSIDES/DOCUSATE SODIUM 1 TAB TABLET PO SCH (21:00)
[2020-01-15] MEDS: 0.9 % SODIUM CHLORIDE 10 ML SYRINGE IV SCH ×4 (05:56→20:52)
[2020-01-15 06:31] LABS: Hematocrit 23.9 % (34.1-44.9); Hemoglobin 7.3 g/dL (11.2-15.7); Mean Cell Volume 96.4 fL (80.0-100.0); Mean Corpuscular HGB Conc 30.5 g/dL (31.0-36.0); Mean Platelet Volume 10.2 fL (7.4-10.4); Platelet Count 276 K/mcL (140-440); RBC 2.48 M/mcL (3.59-5.38); Red Cell Distribution Width 21.4 % (11.5-14.5)
[2020-01-15 07:05] LABS: ALT/SGPT < 5 U/l (0-40); AST/SGOT 13 U/l (0-37); Albumin 3.1 gm/dL (3.2-5.2); Albumin/Globulin Ratio 0.9 (1.0-2.3); Alkaline Phosphatase 122 U/L (39-117); Bilirubin,Direct < 0.2 mg/dL (0.0-0.3); Bilirubin,Total < 0.2 mg/dL (0.0-1.0); Blood Urea Nitrogen 17 mg/dl (8-23); Calcium 9.9 mg/dl (8.6-10.4); Carbon Dioxide 26 mmol/L (22-30); Chloride 97 mmol/L (96-108); Globulin 3.5 gm/dL (2.2-3.7); Glomerular Filtration Rate 17; Glucose 109 mg/dL (70-105); Lactate Dehydrogenase 205 U/L (94-250); Phosphorous 4.8 mg/dL (2.7-4.5); Triglycerides 92 mg/dl (<150); Uric Acid 3.7 mg/dL (2.5-8.0)
[2020-01-15] MEDS: INSULIN LISPRO 1 UNIT/0.01 ML UNIT SQ SCH ×4 (07:21→20:52)
--- NOTE | 2020-01-15 07:37 | Internal Med Progress Note ---
Medical - PN: Subj Patient information: Note initiated : 01/15/20 at 7:29 am Service Date, if different from initiated Date: [] Patient: Miracle Velez a 69 y/o F admitted on 01/14/20 for Shortness of breath. Chief Complaint: [] Interval history: Ms. Velez is a 69 year old F WITH A HISTORY OF MS, AI, ESRD on HD/RUL lung resection, advanced COPD who presents to the ER with rapidly progressive dyspnea over the last 24 hours. Symptoms are present with minimal exertion and even at rest. Denies relief relief using her bronchodilators. Denies associated productive sputum/fever shaking chills or rash or changes in medications. Initial work-up was consistent with hypercapnic respiratory failure with blood pressure 250's, imaging consistent with flash pulmonary edema, blood gas CO2 90 and pH 7.17. White count 25,000. Patient was promptly started on noninvasive mechanical ventilation along with diuretics. Nephrology was consulted for emergent hemodialysis. Elevated troponin consistent with endorgan dysfunction. Hospital service was consulted after nephrology consultation was sought for emergent hemodialysis At the time of evaluation patient is currently on mechanical ablation. She is unable to talk in full sentences. She appears distressed. She was able to endorse history as above and denies sick contacts. Her symptoms are progressed today and a half from dyspnea on maximal exertion to dyspnea at rest. She denies associated fever, productive sputum, smoking. She quit smoking 2 years ago. 01/14 No overnight events or new complaints. Patient denies any shortness of breath at rest, much improved with previous. No cough other than clearing her throat. No fevers or chills. Leukocytosis resolved, troponins downtrending. Review of Systems: denies headache/fever/chills/nausea/vomiting/chest or abdominal pain/cough/dyspnea/diarrhea. Otherwise see above. - Constitutional Vitals: Vital Signs Temp Pulse Resp BP Pulse Ox 98.7 F 75 17 129/58 99 01/15/20 07:01 01/14/20 13:26 01/15/20 07:01 01/15/20 07:01 01/15/20 07:01 Period Temp Pulse Resp BP Sys/Rodriguez Pulse Ox Last 24 Hr 96.7 F-99.8 F 70-77 13-30 61-150/38-72 89-100 Intake and Output 01/14/20 01/15/20 01/15/20 21:59 05:59 13:59 Intake Total 550 Output Total 470 230 Balance -470 320 Weight 52.163 kg Intake & Output: Intake & Output 01/14/20 01/15/20 01/15/20 21:59 05:59 13:59 Intake Total 550 Output Total 470 230 Balance -470 320 Weight 52.163 kg Intake: Oral 300 GI Tube Flush 250 Output: Urine Catheter Amount 470 230 Other: Urine Appearance Clear Clear Uretheral (Kelsey) Clear Clear Urine Color Pale Bright Yellow Uretheral (Kelsey) Pale Bright Yellow Urine Odor Normal Normal Uretheral (Kelsey) Normal Stool Size Small Stool Color Brown Stool Consistency Normal for Patient Formed # Bowel Movements 1 Exam: General: Alert, Awake, No acute Distress Eyes/N/T: EOMI, Head/Neck: neck supple, CV: RRR, Murmur Pulm: mild diminished b/l, occasional wheeze Abd: soft, nontender, +BS x4 Ext: no clubbing/cyanosis/edema Neuro: Alert, no focal deficits, moves all extremities, Skin: warm/dry Medical - PN: Obj Da - Labs CBC & Chem 7: 01/15/20 04:41 01/15/20 04:41 Labs: Abnormal Lab Results 01/15/20 01/15/20 01/15/20 04:41 04:41 04:41 WBC RBC Hgb Hct MCHC RDW Plt Count Gran # Lymph # (Auto) [place] # (Auto) RBC Morphology Polychromasia Anisocytosis Chloride Anion Gap BUN Creatinine 2.8 H Glucose 109 H Phosphorus 4.8 H GGT 59 H Alkaline Phosphatase 122 H Troponin T 0.29 H* C-Reactive Protein 5.6 H NT-Pro-B Natriuret Pep Albumin 3.1 L Albumin/Globulin Ratio 0.9 L Urine Protein Urine Glucose (UA) 01/15/20 01/14/20 01/14/20 04:41 12:12 06:50 WBC RBC 2.48 L Hgb 7.3 L Hct 23.9 L MCHC 30.5 L RDW 21.4 H Plt Count Gran # Lymph # (Auto) [place] # (Auto) RBC Morphology Polychromasia Anisocytosis Chloride Anion Gap BUN Creatinine Glucose Phosphorus GGT Alkaline Phosphatase Troponin T 0.38 H* C-Reactive Protein NT-Pro-B Natriuret Pep Albumin Albumin/Globulin Ratio Urine Protein 100 A Urine Glucose (UA) 150 A 01/14/20 01/14/20 01/14/20 05:40 05:40 05:40 WBC RBC Hgb Hct MCHC RDW Plt Count Gran # Lymph # (Auto) [place] # (Auto) RBC Morphology Abnorm A Polychromasia Few A Anisocytosis 2+ A Chloride 92 L Anion Gap 18.0 H BUN 27 H Creatinine 4.3 H Glucose 230 H Phosphorus GGT Alkaline Phosphatase 149 H Troponin T 0.16 H* C-Reactive Protein 5.7 H NT-Pro-B Natriuret Pep 79925.0 H Albumin Albumin/Globulin Ratio Urine Protein Urine Glucose (UA) 01/14/20 05:40 WBC 24.2 H RBC 2.87 L Hgb 8.4 L Hct 28.1 L MCHC 29.9 L RDW 21.2 H Plt Count 498 H Gran # 17.49 H Lymph # (Auto) 4.85 H [place] # (Auto) 1.43 H RBC Morphology Polychromasia Anisocytosis Chloride Anion Gap BUN Creatinine Glucose Phosphorus GGT Alkaline Phosphatase Troponin T C-Reactive Protein NT-Pro-B Natriuret Pep Albumin Albumin/Globulin Ratio Urine Protein Urine Glucose (UA) Meds: Medications Acetaminophen (Tylenol) 650 mg PO Q4-6HP PRN; Protocol PRN Reason: Per Pain Protocol/Fever > 101 Albuterol/Ipratropium (Duoneb) 3 ml NEB Q4HP PRN PRN Reason: Shortness Of Breath Last Admin: 01/14/20 18:15 Dose: 3 ml Documented by: Bisacodyl (Dulcolax) 10 mg IN Q2-3DAYS PRN PRN Reason: Constipation Budesonide (Pulmicort) 0.5 mg NEB Q12 [facility] Last Admin: 01/14/20 18:15 Dose: 0.5 mg Documented by: Dextrose (Dextrose 50%) 0 ml IV UD PRN PRN Reason: Hypoglycemia Diagnostic Test (Pha) (Accu-Chek) 1 each FS ACHS [facility] Last Admin: 01/15/20 07:21 Dose: 1 each Documented by: Docusate Sodium (Colace) 100 mg PO BID [facility] Last Admin: 01/14/20 22:11 Dose: 100 mg Documented by: Glucose (Insta-Glucose) 15 gm PO PRN PRN PRN Reason: Hypoglycemia Heparin Sodium (Porcine) (Heparin) 5,000 unit SQ Q12 [facility] Last Admin: 01/14/20 22:11 Dose: 5,000 unit Documented by: Acetaminophen (Ofirmev) 650 mg in 65 mls @ 130 mls/hr IV Q6HP PRN; Protocol PRN Reason: Per Pain Protocol/Fever > 101 Nicardipine HCl 25 mg/ Sodium (Chloride) 250 mls @ 50 mls/hr IV Q5HP PRN; Protocol PRN Reason: Hypertension Insulin Human Lispro (Humalog) 0 unit SQ ACHS [facility]; Protocol Last Admin: 01/15/20 07:21 Dose: Not Given Documented by: Iron Carb/Multivit/Servomechanism Assembler/Folic Acid (Multivitamin W/Minerals) 1 tab PO DAILY [facility] Last Admin: 01/14/20 11:08 Dose: 1 tab Documented by: Melatonin (Melatonin 3mg Tablet) 3 mg PO HSP PRN PRN Reason: Insomnia Methylprednisolone Sodium Succinate (Solu-Medrol) 60 mg IV Q12 [facility] Last Admin: 01/14/20 22:11 Dose: 60 mg Documented by: Ondansetron HCl (Zofran Odt) 4 mg SL Q4-6HP PRN; Protocol PRN Reason: Nausea And Vomiting Ondansetron HCl (Zofran) 4 mg IV Q4-6HP PRN; Protocol PRN Reason: Nausea And Vomiting Polyethylene Glycol (Miralax) 17 gm PO DAILYP PRN PRN Reason: Constipation Senna/Docusate Sodium (Senna Plus Tablet) 1 tab PO HS [facility] Last Admin: 01/14/20 22:11 Dose: 1 tab Documented by: Sodium Chloride (Saline Flush) 10 ml IV Q8 [facility] Last Admin: 01/15/20 05:56 Dose: 10 ml Documented by: Medical - PN: A/P - Time Spent With Patient Total time spent is greater than 50% in coordination of care (as documented) at patient's floor/unit and/or counseling patient: - Narrative A/P Narrative: A: *Hypertensive crisis/Emergency with endorgan dysfunction including flash pulm edema/CHF: -IMproved, off nicardipine drip -s/p emergent dialysis *Acute on Chronic Diastolic CHF with valvular dz, severe MS: -Impoved *Hypoxic hypercapnic respiratory failure w/respiratory acidosis: Improved -on Biapap initially, now NC 1L while sleeping *Leukocytosis: ?infectious vs ?Reactive -leukocytosis resolved, no bandemia, afebrile, PCT difficult to interpret in ESRD *Recent h/o of MSSA Bactermia/Endocarditis: being treated outpt *Elevated troponin: 2/2 hypertensive crisis and endorgan dysfunction -Trops 0.16>0.38>0.29 *CAD continue isosorbide/hydralazine/Coreg/aspirin/statin *AECOPD: initiate bronchodilators/steroids *ESRD: *Anemia, chronic: *Depression/Anxiety disorder: continue sertraline *h/o of Lung CA: follows with Dr. Smart Plan: -ICU admit in light of high risk mortality/[place] 2 score 20 -s/p Emergent hemodialysis -Nephrology following -restart home coreg -Cefazolin per Nephro, BC pending -supp O2 prn -Bronchodilators, steroids (wean) -echo pending -ppx: heparin full code Medical - PN: Qual - VTE Deep Vein Thrombosis/Pulmonary Embolism Present on Admission: No
[2020-01-15 07:52] LABS: Anisocytosis 2+ (NONE SEEN); Hypochromasia FEW (NONE SEEN); Lymphocytes % 6 % (15-49); Monocytes % (Manual) 4 % (1-12); Platelet Estimate NORMAL (NORMAL); Polychromasia FEW (NONE SEEN); RBC Morphology ABNORM (NORMAL); Segmented Neutrophils % 90 % (38-78)
[2020-01-15] MEDS ORDERED: predniSONE 20 MG TABLET PO SCH (08:00)
--- NOTE | 2020-01-15 08:19 | XRay Report ---
CLINICAL INFORMATION: Follow-up CHF COMPARISON: 01/14/2020 FINDINGS: The heart has decreased in size and now only mildly enlarged. Mediastinum is unremarkable. Pulmonary vessels have returned to normal in caliber and interstitial edema throughout both lungs has improved considerably. There is mild patchy airspace disease in the right base which could indicate underlying pneumonia. Small right pleural effusion noted. IMPRESSION: There is complete interval resolution CHF. Small right basilar infiltrate which could indicate a proposed pneumonia with small effusion Interpreted and Authenticated by: Bala Rose 01/15/20
[2020-01-15] MEDS ORDERED: LABETALOL 5 MG/ML ML IV PRN ×2 (08:51→13:34)
[2020-01-15] MEDS ORDERED: hydrALAZINE 20 MG/ML VIAL IV PRN (08:51)
[2020-01-15] MEDS ORDERED: ATORVASTATIN 20 MG TABLET PO SCH (09:00)
[2020-01-15] MEDS ORDERED: ASPIRIN 81 MG TAB.CHEW PO SCH (09:00)
[2020-01-15] MEDS ORDERED: CALCITRIOL 0.25 MCG CAPSULE PO SCH (09:00)
[2020-01-15] MEDS ORDERED: VITAMIN D3 1,000 UNIT TABLET PO SCH (09:00)
[2020-01-15] MEDS ORDERED: SODIUM BICARBONATE 650 MG TABLET PO SCH (09:00)
[2020-01-15] MEDS ORDERED: SERTRALINE 100 MG TABLET PO SCH (09:00)
[2020-01-15] MEDS ORDERED: LIDOCAINE PATCH TOPICAL PRN ×2 (09:00→13:34)
[2020-01-15] MEDS ORDERED: CARVEDILOL 6.25 MG TABLET PO SCH (09:00)
--- NOTE | 2020-01-15 10:17 | Nephrology Progress Note ---
Subjective Patient information: Note initiated : 01/15/20 at 10:11 am Service Date, if different from initiated Date: [] Patient: Miracle Velez 69 y/o F admitted on 01/14/20 for Shortness of breath. Chief Complaint: [] Interval history: Patient seen and examined on hemodialysis this morning. She had hemodialysis yesterday, says that she feels much better. Leukocytosis resolved. Objective - Vital Signs Vital signs: Vital Signs Temp Pulse Resp BP Pulse Ox 01/15/20 10:00 36.8 C 64 123/56 01/15/20 09:45 36.8 C 69 136/57 01/15/20 09:30 36.9 C 69 128/58 01/15/20 09:15 36.9 C 69 123/57 01/15/20 09:01 36.9 C 16 121/58 97 01/15/20 09:00 36.9 C 70 121/58 01/15/20 08:46 29 H 119/58 99 01/15/20 08:44 37.1 C 72 19 115/50 98 01/15/20 08:36 20 115/53 96 01/15/20 08:01 37.1 C 18 123/55 100 01/15/20 07:45 37.1 C 73 129/58 01/15/20 07:01 37.1 C 17 129/58 99 01/15/20 06:01 36.8 C 18 133/61 01/15/20 06:00 36.8 C 20 130/65 99 01/15/20 05:05 36.8 C 20 99 01/15/20 05:02 36.8 C 16 130/65 100 01/15/20 04:01 37.0 C 18 133/59 98 01/15/20 03:01 37.0 C 14 126/65 99 01/15/20 02:26 37.1 C 16 98 01/15/20 02:01 37.1 C 16 132/61 01/15/20 02:00 18 98 01/15/20 01:17 37.2 C 19 98 01/15/20 01:01 37.2 C 16 145/64 99 01/15/20 00:01 37.2 C 16 141/67 99 01/15/20 00:00 37.2 C 22 145/64 98 01/14/20 23:03 37.3 C H 14 99 01/14/20 23:01 37.3 C H 15 141/61 99 01/14/20 22:01 37.4 C H 15 133/70 99 01/14/20 22:00 37.4 C H 14 127/49 90 01/14/20 21:01 37.5 C H 16 150/72 97 01/14/20 21:00 37.4 C H 14 127/49 90 01/14/20 20:01 37.7 C H 16 133/59 100 01/14/20 20:00 37.4 C H 14 127/49 90 01/14/20 19:01 37.6 C H 20 117/48 98 01/14/20 19:00 37.4 C H 14 127/49 90 01/14/20 18:01 37.4 C H 14 127/49 90 01/14/20 17:12 37.3 C H 15 135/56 94 01/14/20 16:46 37.2 C 17 133/53 97 01/14/20 16:31 37.3 C H 15 117/53 95 01/14/20 16:16 37.3 C H 15 126/53 96 01/14/20 16:01 37.2 C 13 138/56 95 01/14/20 15:46 37.2 C 16 128/52 93 01/14/20 15:31 37.2 C 22 129/50 94 01/14/20 15:16 37.1 C 16 122/48 94 01/14/20 15:01 37.0 C 15 119/54 96 01/14/20 14:46 37.1 C 18 128/51 97 01/14/20 14:31 37.1 C 17 130/51 96 01/14/20 14:16 36.9 C 18 121/48 97 01/14/20 14:03 98 01/14/20 14:01 36.8 C 18 126/55 97 01/14/20 14:00 18 96 01/14/20 13:46 36.7 C 17 112/52 100 01/14/20 13:31 36.7 C 20 125/52 100 01/14/20 13:26 75 15 100 01/14/20 13:16 36.7 C 14 126/55 100 01/14/20 13:08 36.7 C 13 124/54 100 01/14/20 13:03 36.7 C 76 110/54 01/14/20 13:01 36.7 C 15 110/54 100 01/14/20 12:46 36.7 C 15 111/51 100 01/14/20 12:45 36.6 C 74 111/51 01/14/20 12:31 36.7 C 15 111/54 100 01/14/20 12:30 36.6 C 74 111/54 01/14/20 12:16 36.5 C 16 122/51 100 01/14/20 12:15 36.6 C 75 122/51 01/14/20 12:01 36.2 C 14 119/58 100 01/14/20 12:00 72 119/59 01/14/20 11:46 14 101/50 98 01/14/20 11:45 73 101/50 01/14/20 11:43 17 103/55 98 01/14/20 11:40 70 14 75/45 100 01/14/20 11:37 16 70/44 100 01/14/20 11:35 16 61/38 100 01/14/20 11:31 20 72/45 100 01/14/20 11:30 70 61/38 01/14/20 11:17 17 96/51 100 01/14/20 11:16 17 91/48 100 01/14/20 11:15 74 96/51 01/14/20 11:01 17 118/59 99 01/14/20 11:00 75 118/59 01/14/20 10:46 16 108/57 100 01/14/20 10:45 77 108/57 01/14/20 10:31 15 108/50 100 01/14/20 10:30 74 108/50 01/14/20 10:16 18 110/56 99 01/14/20 10:15 75 110/56 Intake and Output 01/14/20 01/15/20 01/15/20 21:59 05:59 13:59 Intake Total 550 Output Total 470 230 Balance -470 320 Intake: Oral 300 GI Tube Flush 250 Output: Urine Catheter Amount 470 230 Other: Urine Appearance Clear Clear Uretheral (Kelsey) Clear Clear Urine Color Pale Bright Yellow Uretheral (Kelsey) Pale Bright Yellow Urine Odor Normal Normal Uretheral (Kelsey) Normal Stool Size Small Stool Color Brown Stool Consistency Normal for Patient Formed # Bowel Movements 1 Weight 52.163 kg Intake & Output: Intake & Output 01/14/20 01/15/20 01/15/20 21:59 05:59 13:59 Intake Total 550 Output Total 470 230 Balance -470 320 Weight 52.163 kg Intake: Oral 300 GI Tube Flush 250 Output: Urine Catheter Amount 470 230 Other: Urine Appearance Clear Clear Uretheral (Kelsey) Clear Clear Urine Color Pale Bright Yellow Uretheral (Kelsey) Pale Bright Yellow Urine Odor Normal Normal Uretheral (Kelsey) Normal Stool Size Small Stool Color Brown Stool Consistency Normal for Patient Formed # Bowel Movements 1 - Lab 01/15/20 04:41 01/15/20 04:41 Most recent lab results Calcium 9.9 mg/dl (8.6-10.4) 01/15/20 04:41 Phosphorus 4.8 mg/dL (2.7-4.5) H 01/15/20 04:41 Magnesium 2.3 mg/dL (1.6-2.5) 01/15/20 04:41 Assessment and Plan (1) End-stage renal disease on hemodialysis Status: Acute (2) Flash pulmonary edema Status: Resolved Priority: High (3) Hypertensive crisis Status: Resolved Priority: High (4) MSSA bacteremia Status: Acute Priority: Medium - Narrative A/P Narrative: ESRD on HD Friday. Last HD 01/14/2020. Today she is undergoing isolated ultrafiltration. At the time of my visit she was tolerating the treatment well, she was normotensive, on room air, had no lower extremity edema. Total UF time today 3 hours, with a maximum of 13 mils per KG per hour UF. Next hemodialysis 01/17/2020. If she remains stable, can be discharged from renal standpoint K, BUN, bicarbonate within lab reference range. mild hyperphosphatemia, continue sevelamer 1600tid qac 1 gram cefazolin today after HD, continue 2 grams three times a week post HD.
[2020-01-15] MEDS: SEVELAMER 800 MG TABLET PO SCH ×3 (10:36→17:04)
[2020-01-15] MEDS: DOCUSATE SODIUM 100 MG CAPSULE PO SCH ×2 (11:23→20:49)
[2020-01-15] MEDS: HEPARIN 5,000 UNIT/ML VIAL SQ SCH ×2 (11:23→20:49)
[2020-01-15] MEDS: MULTIVIT,THER IRON,CA,FA & MIN 1 TABLET PO SCH (11:24)
[2020-01-15] MEDS ORDERED: ceFAZolin 1 GM VIAL IV ONE (12:00)
[2020-01-15] MEDS: BUDESONIDE 0.5 MG/2 ML AMPUL.NEB NEB SCH ×2 (12:03→18:31)
[2020-01-15] MEDS ORDERED: ONDANSETRON 4 MG/2 ML VIAL IV PRN (13:34)
[2020-01-15] MEDS ORDERED: DEXTROSE 31 GM ORAL.SUSP PO PRN (13:34)
[2020-01-15] MEDS ORDERED: ACETAMINOPHEN 325 MG TABLET PO PRN (13:34)
[2020-01-15] MEDS ORDERED: IPRATROPIUM/ALBUTEROL 3 ML AMPUL.NEB NEB PRN (13:34)
[2020-01-15] MEDS ORDERED: VANCOMYCIN 1,000 MG in 0.9 % SODIUM CHLORIDE 250 ML IV ONE (13:34)
[2020-01-15] MEDS ORDERED: ONDANSETRON 4 MG ODT TABLET SL PRN (13:34)
[2020-01-15] MEDS ORDERED: BISACODYL 10 MG SUPP.RECT PR PRN (13:34)
[2020-01-15] MEDS ORDERED: DEXTROSE 50% 50 ML VIAL IV PRN (13:34)
[2020-01-15] MEDS ORDERED: POLYETHYLENE GLYCOL 3350 17 GM PACKET PO PRN (13:34)
[2020-01-15] MEDS ORDERED: ACETAMINOPHEN 650 MG/65 ML BOTTLE IV PRN (13:34)
[2020-01-15] MEDS: CARVEDILOL 6.25 MG TABLET PO SCH (17:04)
[2020-01-15] MEDS: SODIUM BICARBONATE 650 MG TABLET PO SCH (20:49)
[2020-01-15] MEDS: CALCIUM CARBONATE 500 MG TAB.CHEW CHEWED PRN (20:49)
[2020-01-15] MEDS: SERTRALINE 100 MG TABLET PO SCH (20:49)
[2020-01-15] MEDS: SENNOSIDES/DOCUSATE SODIUM 1 TAB TABLET PO SCH (20:49)
[2020-01-15] MEDS ORDERED: MELATONIN 3 MG TABLET PO PRN (21:00)
[2020-01-16] MEDS: 0.9 % SODIUM CHLORIDE 10 ML SYRINGE IV SCH ×3 (04:30→20:40)
[2020-01-16 06:09] LABS: Basophils # (Auto) 0.01 K/mcL (0.00-0.30); Basophils % (Auto) 0.1 % (0.0-2.0); Eosinophils # (Auto) 0.04 K/mcL (0.00-0.70); Eosinophils % (Auto) 0.4 % (0.0-7.0); Granulocytes % (Auto) 73.9 % (38.0-78.0); Hematocrit 26.8 % (34.1-44.9); Hemoglobin 8.1 g/dL (11.2-15.7); Lymphocytes # (Auto) 1.81 K/mcL (1.50-4.80); Lymphocytes % (Auto) 17.5 % (15.5-49.0); Mean Cell Volume 96.4 fL (80.0-100.0); Mean Corpuscular HGB Conc 30.2 g/dL (31.0-36.0); Monocytes # (Auto) 0.84 K/mcL (0.10-0.90); Monocytes % (Auto) 8.1 % (1.0-12.0); Platelet Count 300 K/mcL (140-440); RBC 2.78 M/mcL (3.59-5.38); Red Cell Distribution Width 21.5 % (11.5-14.5); WBC 10.4 K/mcL (4.50-11.00)
[2020-01-16 06:31] LABS: Blood Urea Nitrogen 45 mg/dl (8-23); Calcium 10.5 mg/dl (8.6-10.4); Carbon Dioxide 22 mmol/L (22-30); Chloride 90 mmol/L (96-108); Glomerular Filtration Rate 11; Glucose 87 mg/dL (70-105)
[2020-01-16] MEDS: BUDESONIDE 0.5 MG/2 ML AMPUL.NEB NEB SCH ×2 (07:27→20:05)
--- NOTE | 2020-01-16 07:51 | Internal Med Progress Note ---
Medical - PN: Subj Patient information: Note initiated : 01/16/20 at 7:48 am Service Date, if different from initiated Date: [] Patient: Miracle Velez a 69 y/o F admitted on 01/14/20 for Shortness of breath. Chief Complaint: [] Interval history: Ms. Velez is a 69 year old F WITH A HISTORY OF MS, AI, ESRD on HD/RUL lung resection, advanced COPD who presents to the ER with rapidly progressive dyspnea over the last 24 hours. Symptoms are present with minimal exertion and even at rest. Denies relief relief using her bronchodilators. Denies associated productive sputum/fever shaking chills or rash or changes in medications. Initial work-up was consistent with hypercapnic respiratory failure with blood pressure 250's, imaging consistent with flash pulmonary edema, blood gas CO2 90 and pH 7.17. White count 25,000. Patient was promptly started on noninvasive mechanical ventilation along with diuretics. Nephrology was consulted for emergent hemodialysis. Elevated troponin consistent with endorgan dysfunction. Hospital service was consulted after nephrology consultation was sought for emergent hemodialysis At the time of evaluation patient is currently on mechanical ablation. She is unable to talk in full sentences. She appears distressed. She was able to endorse history as above and denies sick contacts. Her symptoms are progressed today and a half from dyspnea on maximal exertion to dyspnea at rest. She denies associated fever, productive sputum, smoking. She quit smoking 2 years ago. 01/14 No overnight events or new complaints. Patient denies any shortness of breath at rest, much improved with previous. No cough other than clearing her throat. No fevers or chills. Leukocytosis resolved, troponins downtrending. 01/15 Continues to feel better. Slept better. No fevers. Nephrology for electrolyte abnormalities. Review of Systems: denies headache/fever/chills/nausea/vomiting/chest or abdominal pain/cough/dyspnea/diarrhea. Otherwise see above. - Constitutional Vitals: Vital Signs Temp Pulse Resp BP Pulse Ox 98.2 F 70 16 140/62 97 01/16/20 04:00 01/16/20 04:00 01/16/20 04:00 01/16/20 04:00 01/16/20 04:00 Period Temp Pulse Resp BP Sys/Rodriguez Pulse Ox Last 24 Hr 97.4 F-99.2 F 63-76 12-30 77-140/37-75 95-100 Intake and Output 01/15/20 01/16/20 01/16/20 21:59 05:59 13:59 Intake Total 240 540 Output Total 125 75 Balance 115 465 Weight 51.483 kg Intake & Output: Intake & Output 01/15/20 01/16/20 01/16/20 21:59 05:59 13:59 Intake Total 240 540 Output Total 125 75 Balance 115 465 Weight 51.483 kg Intake: Oral 240 540 Output: Urine Catheter Amount 125 Void Amount 75 Other: Meal Dinner Percent of Meal Consumed 75% Urine Appearance Clear Urine Color Dark Yellow Stool Size Small Small Stool Color Brown Brown # Voids 1 1 # Bowel Movements 1 1 Exam: General: Alert, Awake, No acute Distress Eyes/N/T: EOMI, Head/Neck: neck supple, CV: RRR, Murmur Pulm: mild diminished b/l, no wheezing Abd: soft, nontender, +BS x4 Ext: no clubbing/cyanosis/edema Neuro: Alert, no focal deficits, moves all extremities, Skin: warm/dry Medical - PN: Obj Da - Labs CBC & Chem 7: 01/16/20 04:34 01/16/20 04:34 Labs: Abnormal Lab Results 01/16/20 01/16/20 01/15/20 04:34 04:34 04:41 WBC RBC 2.78 L Hgb 8.1 L Hct 26.8 L MCHC 30.2 L RDW 21.5 H Plt Count Gran # Lymph # (Auto) [place] # (Auto) Seg Neutrophils % Lymphocytes % RBC Morphology Polychromasia Hypochromasia Anisocytosis Sodium 129 L Chloride 90 L Anion Gap 17.0 H BUN 45 H Creatinine 4.0 H Glucose Calcium 10.5 H Phosphorus GGT Alkaline Phosphatase Troponin T 0.29 H* C-Reactive Protein NT-Pro-B Natriuret Pep Albumin Albumin/Globulin Ratio Urine Protein Urine Glucose (UA) 01/15/20 01/15/20 01/15/20 04:41 04:41 04:41 WBC RBC 2.48 L Hgb 7.3 L Hct 23.9 L MCHC 30.5 L RDW 21.4 H Plt Count Gran # Lymph # (Auto) [place] # (Auto) Seg Neutrophils % 90 H Lymphocytes % 6 L RBC Morphology Abnorm A Polychromasia Few A Hypochromasia Few A Anisocytosis 2+ A Sodium Chloride Anion Gap BUN Creatinine 2.8 H Glucose 109 H Calcium Phosphorus 4.8 H GGT 59 H Alkaline Phosphatase 122 H Troponin T C-Reactive Protein 5.6 H NT-Pro-B Natriuret Pep Albumin 3.1 L Albumin/Globulin Ratio 0.9 L Urine Protein Urine Glucose (UA) 01/14/20 01/14/20 01/14/20 12:12 06:50 05:40 WBC RBC Hgb Hct MCHC RDW Plt Count Gran # Lymph # (Auto) [place] # (Auto) Seg Neutrophils % Lymphocytes % RBC Morphology Abnorm A Polychromasia Few A Hypochromasia Anisocytosis 2+ A Sodium Chloride Anion Gap BUN Creatinine Glucose Calcium Phosphorus GGT Alkaline Phosphatase Troponin T 0.38 H* C-Reactive Protein NT-Pro-B Natriuret Pep Albumin Albumin/Globulin Ratio Urine Protein 100 A Urine Glucose (UA) 150 A 01/14/20 01/14/20 01/14/20 05:40 05:40 05:40 WBC 24.2 H RBC 2.87 L Hgb 8.4 L Hct 28.1 L MCHC 29.9 L RDW 21.2 H Plt Count 498 H Gran # 17.49 H Lymph # (Auto) 4.85 H [place] # (Auto) 1.43 H Seg Neutrophils % Lymphocytes % RBC Morphology Polychromasia Hypochromasia Anisocytosis Sodium Chloride 92 L Anion Gap 18.0 H BUN 27 H Creatinine 4.3 H Glucose 230 H Calcium Phosphorus GGT Alkaline Phosphatase 149 H Troponin T 0.16 H* C-Reactive Protein 5.7 H NT-Pro-B Natriuret Pep 62825.0 H Albumin Albumin/Globulin Ratio Urine Protein Urine Glucose (UA) Meds: Medications Acetaminophen (Tylenol) 650 mg PO Q4-6HP PRN; Protocol PRN Reason: Per Pain Protocol/Fever > 101 Albuterol/Ipratropium (Duoneb) 3 ml NEB Q4HP PRN PRN Reason: Shortness Of Breath Last Admin: 01/15/20 18:31 Dose: 3 ml Documented by: Aspirin (Aspirin) 81 mg PO DAILY RODRIGO Atorvastatin Calcium (Lipitor) 10 mg PO DAILY RODRIGO Bisacodyl (Dulcolax) 10 mg MA Q2-3DAYS PRN PRN Reason: Constipation Budesonide (Pulmicort) 0.5 mg NEB Q12 [facility] Last Admin: 01/16/20 07:27 Dose: 0.5 mg Documented by: Calcitriol (Rocaltrol) 0.5 mcg PO Q48H [facility] Calcium Carbonate/Glycine (Tums) 500 mg CHEWED Q4HP PRN PRN Reason: Dyspepsia Last Admin: 01/15/20 20:49 Dose: 500 mg Documented by: [facility] Last Admin: 01/15/20 17:04 Dose: 6.25 mg Documented by: Cefazolin Sodium (Ancef) 2 gm IV MoWeFr@1400 ONE Stop: 01/17/20 14:01 Dextrose (Dextrose 50%) 0 ml IV UD PRN PRN Reason: Hypoglycemia Diagnostic Test (Pha) (Accu-Chek) 1 each FS [facility] Last Admin: 01/16/20 07:25 Dose: 1 each Documented by: Docusate Sodium (Colace) 100 mg PO BID [facility] Last Admin: 01/15/20 20:49 Dose: 100 mg Documented by: Ferric Sodium Gluconate Complex (Ferrlecit) 62.5 mg IV Mo@0900 [facility] Glucose (Insta-Glucose) 15 gm PO PRN PRN PRN Reason: Hypoglycemia Heparin Sodium (Porcine) (Heparin) 5,000 unit SQ Q12 [facility] Last Admin: 01/15/20 20:49 Dose: 5,000 unit Documented by: Acetaminophen (Ofirmev) 650 mg in 65 mls @ 130 mls/hr IV Q6HP PRN; Protocol PRN Reason: Per Pain Protocol/Fever > 101 Insulin Human Lispro (Humalog) 0 unit SQ [facility]; Protocol Last Admin: 01/15/20 20:52 Dose: Not Given Documented by: Iron Carb/Multivit/[place]/Folic Acid (Multivitamin W/Minerals) 1 tab PO DAILY [facility] Labetalol HCl (Trandate) 0 mg IV Q2HP PRN PRN Reason: Hypertension Lidocaine (Lidoderm) 1 patch TOPICAL DAILYP PRN PRN Reason: BACK PAIN Melatonin (Melatonin 3mg Tablet) 3 mg PO HSP PRN PRN Reason: Insomnia Ondansetron HCl (Zofran Odt) 4 mg SL Q4-6HP PRN; Protocol PRN Reason: Nausea And Vomiting Ondansetron HCl (Zofran) 4 mg IV Q4-6HP PRN; Protocol PRN Reason: Nausea And Vomiting Polyethylene Glycol (Miralax) 17 gm PO DAILYP PRN PRN Reason: Constipation Senna/Docusate Sodium (Senna Plus Tablet) 1 tab PO HS [facility] Last Admin: 01/15/20 20:49 Dose: 1 tab Documented by: Sertraline HCl (Zoloft) 50 mg PO BID [facility] Last Admin: 01/15/20 20:49 Dose: 50 mg Documented by: Sevelamer Carbonate (Renvela) 1,600 mg PO TIDCC [facility] Last Admin: 01/15/20 17:04 Dose: 1,600 mg Documented by: Sodium Bicarbonate (Sodium Bicarbonate) 650 mg PO BID [facility] Last Admin: 01/15/20 20:49 Dose: 650 mg Documented by: Sodium Chloride (Saline Flush) 10 ml IV Q8 [facility] Last Admin: 01/16/20 04:30 Dose: 10 ml Documented by: Vitamin D (Vitamin D3) 1,000 unit PO Q48H [facility] Medical - PN: A/P - Time Spent With Patient Total time spent is greater than 50% in coordination of care (as documented) at patient's floor/unit and/or counseling patient: - Narrative A/P Narrative: A: *Hypertensive crisis/Emergency with endorgan dysfunction including flash pulm edema/CHF: -IMproved, off nicardipine drip -s/p emergent dialysis *Acute on Chronic Diastolic CHF with valvular dz (severe MS): -Impoved -Echo showing EF 64%, grade II diastolic, RV systolic ok, suspected vegetations Mitral valve, severe MS, apex appears hypokinetic *Severe Mitral Stenosis: was referred to cardiology several months ago, intervention not felt to help during that consultation -pt denies rheumatic fever as a child *Hypoxic hypercapnic respiratory failure w/respiratory acidosis: Improved -on Biapap initially, now room air *Leukocytosis: ?infectious vs ?Reactive -leukocytosis resolved, no bandemia, afebrile, PCT difficult to interpret in ESRD *Recent h/o of MSSA Bactermia/Endocarditis: being treated outpt with cefazolin *Elevated troponin: 2/2 hypertensive crisis and endorgan dysfunction -Trops 0.16>0.38>0.29 *ESRD: *COPD: *Hyponatremia: *Anemia, chronic: *Depression/Anxiety disorder: continue sertraline *h/o of Lung CA: follows with Dr. Smart Plan: -nephro for HD -Nephrology following -restarted home coreg -cont ASA/STatin -Cefazolin per Nephro, BC pending -did discuss the case with audio visual equipment rental clerk at [place]> would be a difficult surgical case to replace/repair her mitral valve. No other surgical indications regarding any of the vegetations. Continue medical management for possible cardiac event leading to some apical hypokinesis. Follow-up closely with cardiology -supp O2 prn -prn nebs -echo pending -f/u closely with cardiology -ppx: heparin full code Medical - PN: Qual - VTE Deep Vein Thrombosis/Pulmonary Embolism Present on Admission: No
[2020-01-16] MEDS ORDERED: predniSONE 20 MG TABLET PO SCH (08:00)
[2020-01-16] MEDS: INSULIN LISPRO 1 UNIT/0.01 ML UNIT SQ SCH ×4 (08:27→20:42)
[2020-01-16] MEDS: SEVELAMER 800 MG TABLET PO SCH ×3 (08:37→17:25)
[2020-01-16] MEDS: SERTRALINE 100 MG TABLET PO SCH ×2 (08:38→20:36)
[2020-01-16] MEDS: CARVEDILOL 6.25 MG TABLET PO SCH ×2 (08:38→17:25)
[2020-01-16] MEDS: SODIUM BICARBONATE 650 MG TABLET PO SCH ×2 (08:38→20:36)
[2020-01-16] MEDS: ATORVASTATIN 20 MG TABLET PO SCH (08:38)
[2020-01-16] MEDS: MULTIVIT,THER IRON,CA,FA & MIN 1 TABLET PO SCH (08:38)
[2020-01-16] MEDS: DOCUSATE SODIUM 100 MG CAPSULE PO SCH ×2 (08:38→20:36)
[2020-01-16] MEDS: HEPARIN 5,000 UNIT/ML VIAL SQ SCH ×2 (08:39→20:38)
[2020-01-16] MEDS: ASPIRIN 81 MG TAB.CHEW PO SCH (08:39)
[2020-01-16] MEDS: SENNOSIDES/DOCUSATE SODIUM 1 TAB TABLET PO SCH (20:36)
[2020-01-16] MEDS: CALCIUM CARBONATE 500 MG TAB.CHEW CHEWED PRN (20:37)
[2020-01-17 06:28] LABS: Calcium 9.7 mg/dl (8.6-10.4); Carbon Dioxide 22 mmol/L (22-30); Glucose 81 mg/dL (70-105)
[2020-01-17 06:37] LABS: Blood Urea Nitrogen 65 mg/dl (8-23); Chloride 90 mmol/L (96-108); Glomerular Filtration Rate 8
[2020-01-17] MEDS: CARVEDILOL 6.25 MG TABLET PO SCH (07:37)
[2020-01-17] MEDS: 0.9 % SODIUM CHLORIDE 10 ML SYRINGE IV SCH (07:37)
[2020-01-17] MEDS: INSULIN LISPRO 1 UNIT/0.01 ML UNIT SQ SCH ×2 (07:37→11:58)
[2020-01-17] MEDS: SEVELAMER 800 MG TABLET PO SCH ×2 (07:37→11:57)
[2020-01-17] MEDS: ATORVASTATIN 20 MG TABLET PO SCH (07:44)
[2020-01-17] MEDS: DOCUSATE SODIUM 100 MG CAPSULE PO SCH (07:45)
[2020-01-17] MEDS: SERTRALINE 100 MG TABLET PO SCH (07:45)
[2020-01-17] MEDS: SODIUM BICARBONATE 650 MG TABLET PO SCH (07:45)
[2020-01-17] MEDS: ASPIRIN 81 MG TAB.CHEW PO SCH (07:45)
[2020-01-17] MEDS: MULTIVIT,THER IRON,CA,FA & MIN 1 TABLET PO SCH (07:46)
[2020-01-17] MEDS: HEPARIN 5,000 UNIT/ML VIAL SQ SCH (07:46)
--- NOTE | 2020-01-17 08:08 | Internal Med Progress Note ---
Medical - PN: Subj Patient information: Note initiated : 01/17/20 at 8:07 am Service Date, if different from initiated Date: [] Patient: Miracle Velez a 69 y/o F admitted on 01/14/20 for Shortness of breath. Chief Complaint: [] Interval history: Ms. Velez is a 69 year old F WITH A HISTORY OF MS, AI, ESRD on HD/RUL lung resection, advanced COPD who presents to the ER with rapidly progressive dyspnea over the last 24 hours. Symptoms are present with minimal exertion and even at rest. Denies relief relief using her bronchodilators. Denies associated productive sputum/fever shaking chills or rash or changes in medications. Initial work-up was consistent with hypercapnic respiratory failure with blood pressure 250's, imaging consistent with flash pulmonary edema, blood gas CO2 90 and pH 7.17. White count 25,000. Patient was promptly started on noninvasive mechanical ventilation along with diuretics. Nephrology was consulted for emergent hemodialysis. Elevated troponin consistent with endorgan dysfunction. Hospital service was consulted after nephrology consultation was sought for emergent hemodialysis At the time of evaluation patient is currently on mechanical ablation. She is unable to talk in full sentences. She appears distressed. She was able to endorse history as above and denies sick contacts. Her symptoms are progressed today and a half from dyspnea on maximal exertion to dyspnea at rest. She denies associated fever, productive sputum, smoking. She quit smoking 2 years ago. 01/14 No overnight events or new complaints. Patient denies any shortness of breath at rest, much improved with previous. No cough other than clearing her throat. No fevers or chills. Leukocytosis resolved, troponins downtrending. 01/15 Continues to feel better. Slept better. No fevers. Nephrology for electrolyte abnormalities. Review of Systems: denies headache/fever/chills/nausea/vomiting/chest or abdominal pain/cough/dyspnea/diarrhea. Otherwise see above. - Constitutional Vitals: Vital Signs Temp Pulse Resp BP Pulse Ox 97.4 F 66 16 136/62 97 01/17/20 06:32 01/17/20 04:00 01/17/20 06:32 01/17/20 06:32 01/17/20 06:32 Period Temp Pulse Resp BP Sys/Rodriguez Pulse Ox Last 24 Hr 97.1 F-98.8 F 62-68 16-18 127-153/58-64 92-98 Intake and Output 01/16/20 01/17/20 01/17/20 21:59 05:59 13:59 Intake Total 600 120 Output Total 100 0 Balance 500 120 Weight 49.124 kg Intake & Output: Intake & Output 01/16/20 01/17/20 01/17/20 21:59 05:59 13:59 Intake Total 600 120 Output Total 100 0 Balance 500 120 Weight 49.124 kg Intake: Oral 600 120 Output: Void Amount 100 0 Other: Meal Dinner Percent of Meal Consumed 100% Feeding Ability Independent # Voids 1 1 Exam: General: Alert, Awake, No acute Distress Eyes/N/T: EOMI, Head/Neck: neck supple, CV: RRR, Murmur Pulm: mild diminished b/l, no wheezing Abd: soft, nontender, +BS x4 Ext: no clubbing/cyanosis/edema Neuro: Alert, no focal deficits, moves all extremities, Skin: warm/dry Medical - PN: Obj Da - Labs CBC & Chem 7: 01/16/20 04:34 01/17/20 04:40 Labs: Abnormal Lab Results 01/17/20 01/16/20 01/16/20 04:40 04:34 04:34 RBC 2.78 L Hgb 8.1 L Hct 26.8 L MCHC 30.2 L RDW 21.5 H Seg Neutrophils % Lymphocytes % RBC Morphology Polychromasia Hypochromasia Anisocytosis Sodium 130 L 129 L Chloride 90 L 90 L Anion Gap 18.0 H 17.0 H BUN 65 H 45 H Creatinine 5.2 H* 4.0 H Glucose Calcium 10.5 H Phosphorus GGT Alkaline Phosphatase Troponin T C-Reactive Protein Albumin Albumin/Globulin Ratio Urine Protein Urine Glucose (UA) 01/15/20 01/15/20 01/15/20 04:41 04:41 04:41 RBC Hgb Hct MCHC RDW Seg Neutrophils % Lymphocytes % RBC Morphology Polychromasia Hypochromasia Anisocytosis Sodium Chloride Anion Gap BUN Creatinine 2.8 H Glucose 109 H Calcium Phosphorus 4.8 H GGT 59 H Alkaline Phosphatase 122 H Troponin T 0.29 H* C-Reactive Protein 5.6 H Albumin 3.1 L Albumin/Globulin Ratio 0.9 L Urine Protein Urine Glucose (UA) 05/01/14/20 01/14/20 04:41 12:12 06:50 RBC 2.48 L Hgb 7.3 L Hct 23.9 L MCHC 30.5 L RDW 21.4 H Seg Neutrophils % 90 H Lymphocytes % 6 L RBC Morphology Abnorm A Polychromasia Few A Hypochromasia Few A Anisocytosis 2+ A Sodium Chloride Anion Gap BUN Creatinine Glucose Calcium Phosphorus GGT Alkaline Phosphatase Troponin T 0.38 H* C-Reactive Protein Albumin Albumin/Globulin Ratio Urine Protein 100 A Urine Glucose (UA) 150 A 01/14/20 05:40 RBC Hgb Hct MCHC RDW Seg Neutrophils % Lymphocytes % RBC Morphology Abnorm A Polychromasia Few A Hypochromasia Anisocytosis 2+ A Sodium Chloride Anion Gap BUN Creatinine Glucose Calcium Phosphorus GGT Alkaline Phosphatase Troponin T C-Reactive Protein Albumin Albumin/Globulin Ratio Urine Protein Urine Glucose (UA) Meds: Medications Acetaminophen (Tylenol) 650 mg PO Q4-6HP PRN; Protocol PRN Reason: Per Pain Protocol/Fever > 101 Albuterol/Ipratropium (Duoneb) 3 ml NEB Q4HP PRN PRN Reason: Shortness Of Breath Last Admin: 01/15/20 18:31 Dose: 3 ml Documented by: Aspirin (Aspirin) 81 mg PO DAILY [facility] Last Admin: 01/17/20 07:45 Dose: 81 mg Documented by: Atorvastatin Calcium (Lipitor) 10 mg PO DAILY [facility] Last Admin: 01/17/20 07:44 Dose: 10 mg Documented by: Bisacodyl (Dulcolax) 10 mg CO Q2-3DAYS PRN PRN Reason: Constipation Budesonide (Pulmicort) 0.5 mg NEB Q12 [facility] Last Admin: 01/16/20 20:05 Dose: 0.5 mg Documented by: Carvedilol (Coreg) 6.25 mg PO BIDCC [facility] Last Admin: 01/17/20 07:37 Dose: 6.25 mg Documented by: Cefazolin Sodium (Ancef) 2 gm IV MoWeFr@1400 ONE Stop: 01/17/20 14:01 Dextrose (Dextrose 50%) 0 ml IV UD PRN PRN Reason: Hypoglycemia Diagnostic Test (Pha) (Accu-Chek) 1 each FS ACHS [facility] Last Admin: 01/17/20 07:37 Dose: 1 each Documented by: Docusate Sodium (Colace) 100 mg PO BID [facility] Last Admin: 01/17/20 07:45 Dose: 100 mg Documented by: Ferric Sodium Gluconate Complex (Ferrlecit) 62.5 mg IV Mo@0900 [facility] Glucose (Insta-Glucose) 15 gm PO PRN PRN PRN Reason: Hypoglycemia Heparin Sodium (Porcine) (Heparin) 5,000 unit SQ Q12 [facility] Last Admin: 01/17/20 07:46 Dose: Not Given Documented by: Acetaminophen (Ofirmev) 650 mg in 65 mls @ 130 mls/hr IV Q6HP PRN; Protocol PRN Reason: Per Pain Protocol/Fever > 101 Insulin Human Lispro (Humalog) 0 unit SQ ACHS [facility]; Protocol Last Admin: 01/17/20 07:37 Dose: Not Given Documented by: Iron Carb/Multivit/Parrish/Folic Acid (Multivitamin W/Minerals) 1 tab PO DAILY [facility] Last Admin: 01/17/20 07:46 Dose: 1 tab Documented by: Labetalol HCl (Trandate) 0 mg IV Q2HP PRN PRN Reason: Hypertension Lidocaine (Lidoderm) 1 patch TOPICAL DAILYP PRN PRN Reason: BACK PAIN Melatonin (Melatonin 3mg Tablet) 3 mg PO HSP PRN PRN Reason: Insomnia Ondansetron HCl (Zofran Odt) 4 mg SL Q4-6HP PRN; Protocol PRN Reason: Nausea And Vomiting Ondansetron HCl (Zofran) 4 mg IV Q4-6HP PRN; Protocol PRN Reason: Nausea And Vomiting Polyethylene Glycol (Miralax) 17 gm PO DAILYP PRN PRN Reason: Constipation Senna/Docusate Sodium (Senna Plus Tablet) 1 tab PO HS [facility] Last Admin: 01/16/20 20:36 Dose: 1 tab Documented by: Sertraline HCl (Zoloft) 50 mg PO BID [facility] Last Admin: 01/17/20 07:45 Dose: 50 mg Documented by: Sevelamer Carbonate (Renvela) 1,600 mg PO TIDCC [facility] Last Admin: 01/17/20 07:37 Dose: 1,600 mg Documented by: Sodium Bicarbonate (Sodium Bicarbonate) 650 mg PO BID [facility] Last Admin: 01/17/20 07:45 Dose: 650 mg Documented by: Sodium Chloride (Saline Flush) 10 ml IV Q8 [facility] Last Admin: 01/17/20 07:37 Dose: 10 ml Documented by: Vitamin D (Vitamin D3) 1,000 unit PO Q48H [facility] Last Admin: 01/17/20 07:51 Dose: 1,000 unit Documented by: Medical - PN: A/P - Time Spent With Patient Total time spent is greater than 50% in coordination of care (as documented) at patient's floor/unit and/or counseling patient: - Narrative A/P Narrative: A: *Hypertensive crisis/Emergency with endorgan dysfunction including flash pulm edema/CHF: -resolved -s/p emergent dialysis, off nicardipine drip *Acute on Chronic Diastolic CHF with valvular dz (severe MS): -Impoved -Echo showing EF 64%, grade II diastolic, RV systolic ok, suspected vegetations Mitral valve, severe MS, apex appears hypokinetic *Severe Mitral Stenosis: was referred to cardiology several months ago, intervention not felt to help during that consultation -pt denies rheumatic fever as a child *Hypoxic hypercapnic respiratory failure w/respiratory acidosis: Improved -on Biapap initially, now room air *Leukocytosis: ?infectious vs ?Reactive -leukocytosis resolved, no bandemia, afebrile, PCT difficult to interpret in ESRD *Recent h/o of MSSA Bactermia/Endocarditis: being treated outpt with cefazolin *Elevated troponin: 2/2 hypertensive crisis and endorgan dysfunction -Trops 0.16>0.38>0.29 *ESRD: *COPD: *Hyponatremia: *Anemia, chronic: *Depression/Anxiety disorder: continue sertraline *h/o of Lung CA: follows with Dr. Smart Plan: -nephro for HD -Nephrology following -restarted home coreg -cont ASA/STatin -Cefazolin per Nephro, BC pending -did discuss the case with toolsmith at [place]> would be a difficult surgical case to replace/repair her mitral valve. No other surgical indications regarding any of the vegetations. Continue medical management for possible cardiac event leading to some apical hypokinesis. Follow-up closely with cardi ology -supp O2 prn -prn nebs -echo pending -f/u closely with cardiology -ppx: heparin full code Medical - PN: Qual - VTE Deep Vein Thrombosis/Pulmonary Embolism Present on Admission: No
--- NOTE | 2020-01-17 08:10 | Discharge Summary ---
Medical - DS: Prov Patient information: Note initiated : 01/17/20 at 8:08 am Service Date, if different from initiated Date: [] Patient: Miracle Velez 69 y/o F admitted on 01/14/20 for Shortness of breath. Chief Complaint: [] Date of admission: 01/14/20 07:37 Discharge date: 01/17/20 Primary care physician: Leonardo Woodard Consults: 01/14/20 Consult to Physician [CONS] Stat Comment: Consulting Provider: Dandre Gaona Reason For Exam: Physician to Consult Medical - DS: Meds - Discharge Medications Active and Home Medications: Home Medications aspirin 81 mg tablet,delayed release 81 mg PO QDAY #30 tab 11/28/16 [Rx Confirmed 01/14/20 Last Taken 01/13/20] cholecalciferol (vitamin D3) 25 mcg (1,000 unit) capsule 1,000 unit PO .qod #30 cap 12/18/17 [Rx Confirmed 01/14/20 Last Taken 01/12/20] krill oil 500 mg capsule 500 mg PO QAM cap 04/30/18 [History Confirmed 01/14/20 Last Taken 01/13/20] vit C 250 mg-E 200 unit-zinc 40 mg-copper 1 oa-lsytft-bogllh capsule 1 tab PO BID 04/30/18 [History Confirmed 01/14/20 Last Taken 01/13/20] lidocaine 5 % topical patch 1 patch TOPICAL QDAY PRN #30 each 05/24/19 [Rx Confirmed 01/14/20 Last Taken Unknown] sevelamer carbonate 800 mg tablet 1,600 mg PO .tidcc #180 tab 11/18/19 [Rx Confirmed 01/14/20 Last Taken 01/13/20] carvedilol 6.25 mg tablet 6.25 mg PO BID #180 tab 12/06/19 [Rx Confirmed 01/14/20 Last Taken 01/13/20] sertraline 100 mg tablet 50 mg PO BID 30 Days #30 tab 12/31/19 [Rx Confirmed 01/14/20 Last Taken 01/13/20] atorvastatin 10 mg tablet 10 mg PO QDAY #90 tab 01/03/20 [Rx Confirmed 01/14/20 Last Taken 01/13/20] cefazolin in sterile water 2 gram/20 mL in sterile water intravenous syringe 2 g IV .COMPLEX #20 ml 05/12/20 [Rx Confirmed 01/14/20 Last Taken 01/12/20] Albuterol Sulfate [Proair Respiclick] 1 inh INHALATION Q6H PRN 01/14/20 [History Confirmed 01/14/20 Last Taken Unknown] Calcitriol [Rocaltrol] 0.5 mcg PO Q2D 01/14/20 [History Confirmed 01/14/20 Last Taken 01/13/20] Darbepoetin Adam in Polysorbat [Aranesp (in polysorbate)] 125 mcg IV WEEKLY 01/14/20 [History Confirmed 01/14/20 Last Taken 01/12/20] Fluticasone Propionate [Flonase] 1 spray INTRANASAL QDAY PRN 01/14/20 [History Confirmed 01/14/20 Last Taken 01/12/20] Sodium Bicarbonate 650 mg PO BID 01/14/20 [History Confirmed 01/14/20 Last Taken 01/13/20] Sodium Ferric Gluconat/Sucrose [Ferrlecit 62.5 mg/5 ml Vial] 62.5 mg IV WEEKLY 01/15/20 [History Confirmed 01/15/20 Last Taken 01/10/20] Medical - DS: Hosp Hospital Course: Ms. Velez is a 69 year old F WITH A HISTORY OF MS, AI, ESRD on HD/RUL lung resection, advanced COPD who presents to the ER with rapidly progressive dyspnea over the last 24 hours. Symptoms are present with minimal exertion and even at rest. Denies relief relief using her bronchodilators. Denies associated productive sputum/fever shaking chills or rash or changes in medications. Initial work-up was consistent with hypercapnic respiratory failure with blood pressure 250's, imaging consistent with flash pulmonary edema, blood gas CO2 90 and pH 7.17. White count 25,000. Patient was promptly started on noninvasive mechanical ventilation along with diuretics. Nephrology was consulted for emergent hemodialysis. Elevated troponin consistent with endorgan dysfunction. Hospital service was consulted after nephrology consultation was sought for emergent hemodialysis At the time of evaluation patient is currently on mechanical ablation. She is unable to talk in full sentences. She appears distressed. She was able to endorse history as above and denies sick contacts. Her symptoms are progressed today and a half from dyspnea on maximal exertion to dyspnea at rest. She denies associated fever, productive sputum, smoking. She quit smoking 2 years ago. 5/23 No overnight events or new complaints. Patient denies any shortness of breath at rest, much improved with previous. No cough other than clearing her throat. No fevers or chills. Leukocytosis resolved, troponins downtrending. 01/15 Continues to feel better. Slept better. No fevers. Nephrology for electrolyte abnormalities. Review of Systems: denies headache/fever/chills/nausea/vomiting/chest or abdominal pain/cough/dyspnea/diarrhea. Otherwise see above. 01/16 Patient doing well. On room air. Feeling well and stable for discharge. Patient is extremely high risk for readmission given significant comorbidities and age. A: *Hypertensive crisis/Emergency with endorgan dysfunction including flash pulm edema/CHF: -resolved -s/p emergent dialysis, off nicardipine drip *Acute on Chronic Diastolic CHF with valvular dz (severe MS): -Impoved -Echo showing EF 64%, grade II diastolic, RV systolic ok, suspected vegetations Mitral valve, severe MS, apex appears hypokinetic *Severe Mitral Stenosis: was referred to cardiology several months ago, intervention not felt to help during that consultation -pt denies rheumatic fever as a child -did discuss the case with deboner at [place]> would be a difficult surgical case to replace/repair her mitral valve. No other surgical indications regarding any of the vegetations. Continue medical management for possible cardiac event leading to some apical hypokinesis. Follow-up closely with cardiology *Hypoxic hypercapnic respiratory failure w/respiratory acidosis: Improved -on Biapap initially, now room air *Leukocytosis: ?infectious vs ?Reactive -leukocytosis resolved, no bandemia, afebrile, PCT difficult to interpret in ESRD *Recent h/o of MSSA Bactermia/Endocarditis: being treated outpt with cefazolin *Elevated troponin: 2/2 hypertensive crisis and endorgan dysfunction -Trops 0.16>0.38>0.29 *ESRD: *COPD: *Hyponatremia: *Anemia, chronic: *Depression/Anxiety disorder: continue sertraline Discharge diagnosis: Hypertensive emergency and flash pulmonary edema CHF diastolic heart failur Secondary discharge diagnosis: Hypoxic hypercapnic respiratory failure endocarditis mitral stenosis demand ischemia end-stage renal disease COPD anemia depression anxiety - Time Spent with Patient Total time spent providing and/or coordinating discharge services: Greater than 30 minutes Medical - DS: Exam - Constitutional Vitals: Vital Signs Temp Pulse Pulse Resp BP Pulse Ox 01/17/20 06:32 97.4 F 16 136/62 97 01/17/20 04:00 98.8 F 66 16 127/60 98 01/16/20 23:02 97.1 F 68 18 153/64 92 01/16/20 20:10 68 16 01/16/20 19:05 97.3 F 65 18 146/58 97 01/16/20 16:00 98.0 F 65 18 138/62 96 01/16/20 12:00 97.3 F 62 18 130/58 97 Intake and Output 01/16/20 01/17/20 01/17/20 21:59 05:59 13:59 Intake Total 600 120 Output Total 100 0 Balance 500 120 Intake: Oral 600 120 Output: Void Amount 100 0 Other: Meal Dinner Percent of Meal Consumed 100% Feeding Ability Independent # Voids 1 1 Weight 49.124 kg Medical - DS: Data Labs on day of discharge: Labs from last 24 hours 01/17/20 04:40 Sodium 130 L Potassium 4.0 Chloride 90 L Carbon Dioxide 22 Anion Gap 18.0 H BUN 65 H Creatinine 5.2 H* GFR Calculation 8 Glucose 81 Calcium 9.7 Preliminary micro results at discharge 01/14/20 09:48 Blood Culture - Preliminary Blood 01/14/20 09:19 Blood Culture - Preliminary Blood Medical - DS: A/P - Patient/Caregiver Discharge Instructions Activity: increase activity as tolerated Diet: Cardiac Additional Instructions: f/u with deboner 7-14 days - Follow up Plan Follow up with: Leonardo Woodard MD [Primary Care Provider] - Vaughn Lanier MD [Physician] - Disposition: Home, Self-Care Prognosis: Serious Rehab Potential: Fair Overall status at discharge: patient is back to baseline Medical - DS: Qual - VTE Deep Vein Thrombosis/Pulmonary Embolism Present on Admission: No
[2020-01-17] MEDS ORDERED: SUCROSE IV SCH ×2 (09:00)
[2020-01-17] MEDS ORDERED: VITAMIN D3 1,000 UNIT TABLET PO SCH (09:00)
[2020-01-17] MEDS ORDERED: CALCITRIOL 0.25 MCG CAPSULE PO SCH (09:00)
[2020-01-17] MEDS ORDERED: SODIUM FERRIC GLUCONAT IV SCH ×2 (09:00)
[2020-01-17] MEDS: BUDESONIDE 0.5 MG/2 ML AMPUL.NEB NEB SCH (09:24)
--- NOTE | 2020-01-17 10:11 | Nephrology Progress Note ---
Subjective Patient information: Note initiated : 01/17/20 at 10:05 am Service Date, if different from initiated Date: [] Patient: Miracle Velez 69 y/o F admitted on 01/14/20 for Shortness of breath. Chief Complaint: [] Principal diagnosis: Pulmonary edema Interval history: Admitted with SOB and putative Dx of flash pulmonary edema. She has MSSA bacteremia with an abnormal echo c/w progressive valvular heart disease and could not exclude a vegetation so she is in the middle of 2 weeks Vanco, followed by 6 weeks of Ancef and negative cultures since day one of abx therapy. Echo in early DEC, 2019 Serial CXR during this admission: Pertinent ROS: Improving appetite and SOB Additional PMFSH (Level 3 Only): N/A Objective - Vital Signs Vital signs: Vital Signs Temp Pulse Pulse Resp BP Pulse Ox 01/17/20 06:32 36.3 C 16 136/62 97 01/17/20 04:00 37.1 C 66 16 127/60 98 01/16/20 23:02 36.2 C 68 18 153/64 92 01/16/20 20:10 68 16 01/16/20 19:05 36.3 C 65 18 146/58 97 01/16/20 16:00 36.7 C 65 18 138/62 96 01/16/20 12:00 36.3 C 62 18 130/58 97 Intake and Output 01/16/20 01/17/20 01/17/20 21:59 05:59 13:59 Intake Total 600 120 Output Total 100 0 Balance 500 120 Intake: Oral 600 120 Output: Void Amount 100 0 Other: Meal Dinner Breakfast Percent of Meal Consumed 100% 100% Feeding Ability Independent Stool Size Moderate Stool Color Brown Stool Consistency Soft # Voids 1 1 1 # Bowel Movements 1 Weight 49.124 kg Intake & Output: Intake & Output 01/16/20 01/17/20 01/17/20 21:59 05:59 13:59 Intake Total 600 120 Output Total 100 0 Balance 500 120 Weight 49.124 kg Intake: Oral 600 120 Output: Void Amount 100 0 Other: Meal Dinner Breakfast Percent of Meal Consumed 100% 100% Feeding Ability Independent Stool Size Moderate Stool Color Brown Stool Consistency Soft # Voids 1 1 1 # Bowel Movements 1 - General Appearance General appearance: appears started age, chronically ill EENT: ATNC, PERRL, mucous membranes moist Neck: no JVD, no carotid bruit Respiratory: course breath sounds, rhonchi (Diminished at the bases) Cardiology: diastolic murmur, no rub, edema (Trace) Gastrointestinal: normoactive bowel sounds, no tenderness Integumentary: no rash, warm and dry Neurologic: no focal deficit Musculoskeletal: no deformities Psychiatric: mood/affect appropriate - Lab 01/16/20 04:34 01/17/20 04:40 Most recent lab results Calcium 9.7 mg/dl (8.6-10.4) 01/17/20 04:40 Phosphorus 4.8 mg/dL (2.7-4.5) H 01/15/20 04:41 Magnesium 2.3 mg/dL (1.6-2.5) 01/15/20 04:41 - Imaging Kidney/bladder ultrasound: other (See admission and f/u CXR) Assessment and Plan (1) ESRD (end stage renal disease) on dialysis Outpatient HD with new dry weight 46.5-47.0 Kg Status: Acute Priority: Medium Comment: HD qMWF (2) Flash pulmonary edema Improved at wt 48.2 (prior dry weight was 49.5) Status: Resolved Priority: High (3) MSSA bacteremia 1. Serial cultures have been neg since day #1 of IV ABx 2. Good LVEF, I/III diastolic CHF, probable vegitation on outpatient ECHO early Dec, 2019 3. Continue Ancef Status: Acute Priority: Medium Comment: Vanco x 2 weeks follow by Ancef 2 gm IV q MWF for 4 additional weeks (4) Anemia due to stage 5 chronic kidney disease treated with darbepoetin Recent lab draws for MSSA, culture, vanco levels, and hospitalization => increase Aranesp to 150 ug/Weds and check retic Status: Chronic Comment: ROBERT therapy initiated September 20, 2019, increased 10/18/19 to 60 ug/mo Increase on Dialysis due to expected blood loss - Narrative A/P Narrative: Ok with discharge and dialysis arranged for today at [facility] outpatient unit. Dry weight decreased and Aranesp increased.
[2020-01-17] MEDS ORDERED: ceFAZolin 1 GM VIAL IV ONE ×2 (14:00)
== END 2020-01-17 12:36 | disposition home or self-care (01) | DRG 304 ==
LOC: ED 04:59 → ICU 07:37 → MEDSUR 01-15 17:55
PROVIDERS: ADMIT Internal Medicine; ATTEND Internal Medicine